=== PATIENT | female | born 1940 | race Caucasian/White ===

== ENCOUNTER 2018-01-14 11:44 | Emergency (ER) | payer MEDICARE ==
[2018-01-14] MEDS ORDERED: Adacel (T-DAP) 0.5 ML VIAL ONE (12:06)
[2018-01-14] MEDS ORDERED: Lidocaine 1% w/Epinephrine 1:100K 20 ML VIAL ONE ×2 (13:08→13:22)
[2018-01-14] MEDS ORDERED: Bacitracin Zinc 1 Packet ONE (13:46)
== END 2018-01-14 14:45 | disposition home or self-care (01) ==
LOC: ERS 11:44
DX: S01.81XA Laceration without foreign body of other part of head, initial encounter (principal); S61.511A Laceration without foreign body of right wrist, initial encounter; I10 Essential (primary) hypertension; G89.29 Other chronic pain; G47.30 Sleep apnea, unspecified; F41.9 Anxiety disorder, unspecified; F32.9 Major depressive disorder, single episode, unspecified; Z79.82 Long term (current) use of aspirin; Z79.899 Other long term (current) drug therapy; W19.XXXA Unspecified fall, initial encounter
CPT/HCPCS: 12001; 12013; 90471; 90715; J2001

== ENCOUNTER 2018-02-28 08:53 | Outpatient (CLI) | payer MEDICARE ==
[2018-02-28] MEDS ORDERED: ISOVUE-370 76%-LOCM 1 ML ONE (11:16)
== END 2018-02-28 08:54 | disposition home or self-care (01) ==
LOC: BICCT 08:53
PROVIDERS: ATTEND Internal Medicine
DX: I31.8 Other specified diseases of pericardium (principal); R91.8 Other nonspecific abnormal finding of lung field
CPT/HCPCS: 71260

== ENCOUNTER 2019-05-18 10:19 | Outpatient (CLI) | payer MEDICARE ==
[2019-05-18 12:06] LABS: Hemoglobin 13.2 g/dL (12.0-16.0); Mean Corpuscular Hemoglobin 31.1 pg (27.0-31.0); Mean Corpuscular Volume 94.3 fL (78.0-98.0); Mean Platelet Volume 6.5 fL (7.4-10.4); Platelet Count 306 thou/uL (130-400); RBC Distribution Width 12.4 % (11.5-14.5); Red Blood Cell (RBC) Count 4.24 mill/uL (4.20-5.40); White Blood Cell (WBC) Count 12.4 thou/uL (4.8-10.8)
[2019-05-18 12:30] LABS: Anion Gap 13 mmol/L (10-20); BUN (Urea Nitrogen) 13 mg/dL (9.8-20.1); Calc. Creatinine Clearance 0 mL/min (70-130); Calcium 10.4 mg/dL (7.8-10.44); Carbon Dioxide 27 mmol/L (23-31); Chloride 105 mmol/L (98-107); Estimated GFR-MDRD 65; Glucose 101 mg/dL (83-110); Sodium 140 mmol/L (136-145)
--- NOTE | 2019-05-19 22:56 | EKG ---
Test Reason : Blood Pressure : / mmHG Vent. Rate : 070 BPM Atrial Rate : 070 BPM P-R Int : 184 ms QRS Dur : 074 ms QT Int : 406 ms P-R-T Axes : 074 072 064 degrees QTc Int : 438 ms Normal sinus rhythm Low voltage QRS Borderline ECG No previous ECGs available Confirmed by Barry PANTOJA ([id number]) on 05/19/2019 10:56:42 PM Referred By: SERJIO Confirmed By:Barry PANTOJA
== END 2019-05-18 10:20 | disposition home or self-care (01) ==
LOC: LABBT 10:19
PROVIDERS: ATTEND Orthopaedic Surgery
DX: Z01.818 Encounter for other preprocedural examination (principal); G56.02 Carpal tunnel syndrome, left upper limb
CPT/HCPCS: 80048; 85027; 93005; 93010

== ENCOUNTER 2019-05-22 07:18 | Day surgery (SDC) | payer MEDICARE ==
[2019-05-18 10:41] VITALS: BMI 33.3
[2019-05-22] MEDS ORDERED: Clindamycin/D5W 600 mg/50 ml Premix Bag ONE (07:46)
[2019-05-22] MEDS ORDERED: Fentanyl 100 MCG/2 ML VIAL ONE (10:03)
[2019-05-22] MEDS ORDERED: Lidocaine 1% (PF) 30 ML VIAL ONE (10:05)
[2019-05-22] MEDS ORDERED: Propofol 1,000 MG/100 ML VIAL IV ONE (10:18)
--- NOTE | 2019-05-22 11:49 | OP ---
DATE OF PROCEDURE: 05/22/2019 PREOPERATIVE DIAGNOSIS: Left carpal tunnel syndrome. POSTOPERATIVE DIAGNOSIS: Left carpal tunnel syndrome. PROCEDURES PERFORMED: 1. Left open carpal tunnel release. 2. Placement of short-arm splint, left upper extremity. CHASSIS MECHANIC: None. BLOOD LOSS: Minimal. COMPLICATIONS: None. ANESTHESIA: The patient had TIVA with local. DISPOSITION: She went to recovery room in stable condition. INDICATIONS: A 78-year-old female, who has severe carpal tunnel syndrome, at this time wished to have this released. DESCRIPTION OF PROCEDURE: After all appropriate consent forms were explained and signed, the patient was taken back to the operating room and at this time was given IV sedation. A well-padded tourniquet was placed on the left arm and the arm was then prepped and draped in the standard surgical fashion. The incision was then drawn out and infiltrated with plain lidocaine. Limb was exsanguinated and tourniquet taken up to 250 mmHg. At this time, using Loupe magnification, a 15 blade was used to incise down through skin. Bipolar cautery was used to coagulate any brisk venous bleeding. We then placed a small hemostat to protect the underlying median nerve and transected the transverse carpal ligament using multiple 15 blades as well as scissors. Once this was done, a small finger was inserted to palpate for any remaining bands. At this time, a moist Ray-Katlin sponge was placed into the wound. Tourniquet was let down and pressure was held. Bipolar cautery used to coagulate any brisk venous bleeding. The wound was then irrigated with saline solution and we then evaluated the nerve. The nerve was found to be significantly injected, the nerve was intact, there were no masses noted, and the underlying flexor tendons were in good condition. At this time, we irrigated and dried the wound. We then placed multiple nylon stitches to close the incision. A bulky sterile hand dressing and a small volar splint were then placed. The patient was then awakened and taken to recovery in stable condition. All counts were correct at the end of the case. The patient received preoperative IV antibiotics. The nerve was evaluated and it found to be in very poor condition. It was found to be almost atretic in appearance, where we injected and the central portion of this almost appeared as if the outer covering of the nerve was absent with the nerve fibers themselves starting to stride or split up rather than being one solid nerve. Again, there were no masses noted. Job ID: [id number]
== END 2019-05-22 11:40 | disposition home or self-care (01) ==
LOC: SDC 07:18
PROVIDERS: ATTEND Orthopaedic Surgery
PROC: 01N50ZZ Release Median Nerve, Open Approach (ICD-10-PCS; principal; 2019-05-22)
DX: G56.03 Carpal tunnel syndrome, bilateral upper limbs (principal); I10 Essential (primary) hypertension; E78.5 Hyperlipidemia, unspecified; J32.9 Chronic sinusitis, unspecified; D64.9 Anemia, unspecified; F32.9 Major depressive disorder, single episode, unspecified; M06.9 Rheumatoid arthritis, unspecified; Z79.1 Long term (current) use of non-steroidal anti-inflammatories (NSAID); Z79.82 Long term (current) use of aspirin; Z79.899 Other long term (current) drug therapy; Z87.891 Personal history of nicotine dependence; Z88.0 Allergy status to penicillin; Z88.2 Allergy status to sulfonamides
CPT/HCPCS: J2001; J2704; J3010; J3490

== ENCOUNTER 2019-06-19 07:20 | Day surgery (SDC) | payer MEDICARE ==
[2019-06-18 11:23] VITALS: BMI 33.5
[2019-06-19] MEDS ORDERED: Clindamycin/D5W 600 mg/50 ml Premix Bag ONE (07:44)
[2019-06-19 08:04] LABS: #Eosinphils 0.2 thou/uL (0.0-0.7); #Lymphocytes 3.5 thou/uL (1.20-3.40); #Monocytes 0.7 thou/uL (0.11-0.59); #Neutrophils 5.9 thou/uL (1.40-6.50); %Basophils 0.4 % (0.0-1.0); %Eosinophils 1.8 % (0.0-10.0); %Lymphocytes 33.9 % (21.0-51.0); %Monocytes 6.5 % (0.0-10.0); %Neutrophils 57.4 % (42.0-75.0); Hemoglobin 12.8 g/dL (12.0-16.0); Mean Corpuscular HGB CONC 33.9 g/dL (32.0-36.0); Mean Corpuscular Hemoglobin 31.8 pg (27.0-31.0); Mean Corpuscular Volume 93.9 fL (78.0-98.0); Mean Platelet Volume 6.2 fL (7.4-10.4); Platelet Count 291 thou/uL (130-400); RBC Distribution Width 12.4 % (11.5-14.5); Red Blood Cell (RBC) Count 4.02 mill/uL (4.20-5.40); White Blood Cell (WBC) Count 10.2 thou/uL (4.8-10.8)
[2019-06-19] MEDS ORDERED: Lidocaine 1% (PF) 30 ML VIAL ONE (09:48)
[2019-06-19] MEDS ORDERED: Fentanyl 100 MCG/2 ML VIAL ONE (09:59)
--- NOTE | 2019-06-19 11:54 | OP ---
DATE OF PROCEDURE: 06/19/2019 PREOPERATIVE DIAGNOSIS: Right carpal tunnel syndrome. POSTOPERATIVE DIAGNOSIS: Right carpal tunnel syndrome. PROCEDURES PERFORMED: 1. Right open carpal tunnel release. 2. Placement of short-arm volar splint right upper extremity. TALENT SOURCING SPECIALIST: None. ESTIMATED BLOOD LOSS: Minimal. COMPLICATIONS: None. DISPOSITION: She went to Day Stay in stable condition. ANESTHESIA: She had a TIVA with local anesthetic. INDICATIONS: This 78-year-old female had a left-sided carpal tunnel release done approximately a month ago. She has done very well from that and at this time opted to have her right side release as well. DESCRIPTION OF PROCEDURE: After all appropriate consent forms were explained and signed, the patient was taken back to the operating room and at this time was given IV sedation. A well-padded tourniquet was placed on the right arm and the arm was then prepped and draped in the standard surgical fashion. The incision was then drawn out and infiltrated with plain lidocaine. Limb was exsanguinated and tourniquet taken up to 250 mmHg. At this time, using Loupe magnification, a 15 blade was used to incise down through skin. Bipolar cautery was used to coagulate any brisk venous bleeding. We then placed a small hemostat to protect the underlying median nerve and transected the transverse carpal ligament using multiple 15 blades as well as scissors. Once this was done, a small finger was inserted to palpate for any remaining bands. At this time, a moist Ray-Katlin sponge was placed into the wound. Tourniquet was let down and pressure was held. Bipolar cautery used to coagulate any brisk venous bleeding. The wound was then irrigated with saline solution and we then evaluated the nerve. The nerve was found to be significantly injected, the nerve was intact, there were no masses noted, and the underlying flexor tendons were in good condition. At this time, we irrigated and dried the wound. We then placed multiple nylon stitches to close the incision. A bulky sterile hand dressing and a small volar splint were then placed. The patient was then awakened and taken to recovery in stable condition. All counts were correct at the end of the case. The patient received preoperative IV antibiotics. Job ID: [id number]
== END 2019-06-19 11:30 | disposition home or self-care (01) ==
LOC: SDC 07:20
PROVIDERS: ATTEND Orthopaedic Surgery
PROC: 01N50ZZ Release Median Nerve, Open Approach (ICD-10-PCS; principal; 2019-06-19)
DX: G56.01 Carpal tunnel syndrome, right upper limb (principal); I10 Essential (primary) hypertension; E78.5 Hyperlipidemia, unspecified; J32.9 Chronic sinusitis, unspecified; F32.9 Major depressive disorder, single episode, unspecified; Z87.891 Personal history of nicotine dependence; Z79.82 Long term (current) use of aspirin; Z79.899 Other long term (current) drug therapy; Z88.0 Allergy status to penicillin; Z88.2 Allergy status to sulfonamides
CPT/HCPCS: 36415; 85025; J2001; J3010; J3490

== ENCOUNTER 2019-07-08 07:34 | Outpatient (CLI) | payer MEDICARE ==
--- NOTE | 2019-07-08 09:12 | MRI ---
MRI LUMBAR SPINE WITHOUT CONTRAST: HISTORY: Lumbar spondylosis. COMPARISON: 05/09/2016 FINDINGS: Conus medullaris is normal in morphology and terminates at the T12-L1 level. There is degenerative marrow heterogeneity. Prominent Schmorl's node involves the inferior L4 vertebr al body. Small Schmorl's node is seen inferiorly at L2. Incidental note of cyst formation of each kidney, multiple in number. L1-2: Mild central canal stenosis due to disc osteophyte formation. No high-grade foraminal stenosis. Mild bilateral facet osteoarthritis, left greater than right. L2-3: Central disc protrusion. Severe central canal stenosis when combined with disc osteophyte compl ex. There is mild left neural foraminal stenosis. No significant right foraminal narrowing. Moderate bilateral facet osteoarthritis. L3-4: Broad based disc osteophyte with moderate central canal stenosis. There is crowding of the bila teral traversing L4 nerve roots. Moderate bilateral facet osteoarthritis is present with moderate left and mild right neural foraminal narrowing. L4-5: Mild to moderate central canal stenosis due to disc osteophyte formation with mild to moderate bilateral neural foraminal stenosis. There is moderate bilateral facet osteoarthritis. L5-S1: Broad-based disc osteophyte is present. Moderate bilateral facet osteoarthritis, left greater than right. There is mild left foraminal narrowing. No significant right foraminal narrowing. IMPRESSION: Moderate multilevel degenerative change throughout the lumbar spine. Findings are most pronounced at L2-3, where central disc protrusion superimposed upon disc osteophyte produces severe central canal stenosis. Transcribed Date/Time: 07/08/2019 10:05 AM
== END 2019-07-08 07:35 | disposition home or self-care (01) ==
LOC: BICMRI 07:34
PROVIDERS: ATTEND Anesthesiology Pain Medicine
DX: M47.26 Other spondylosis with radiculopathy, lumbar region (principal); M51.16 Intervertebral disc disorders with radiculopathy, lumbar region; M48.061 Spinal stenosis, lumbar region without neurogenic claudication; M54.14 Radiculopathy, thoracic region; M25.78 Osteophyte, vertebrae
CPT/HCPCS: 72148

== ENCOUNTER 2019-07-09 07:56 | Outpatient (CLI) | payer MEDICARE ==
--- NOTE | 2019-07-09 10:44 | MRI ---
MRI THORACIC SPINE WITHOUT CONTRAST: Date: 07/09/19 INDICATION: Thoracic radiculopathy. FINDINGS: The thoracic vertebra maintain normal height and alignment. Vertebral body signal is normal. There is no evidence of compression or edema. Disc spaces are maintained. Mild to moderate degenerative spurr ing is seen in the lower thoracic vertebra. There is no evidence of disc bulge or disc protrusion at any of the thoracic levels. There is no cent ral canal stenosis apparent. Thoracic cord signal appears normal. IMPRESSION: There are degenerative changes of the thoracic spine with moderate osteophytes seen anteriorly and la terally in the mid and lower thoracic vertebra. No disc protrusion or central canal stenosis identifi ed. POS: [facility]
== END 2019-07-09 07:57 | disposition home or self-care (01) ==
LOC: BICMRI 07:56
PROVIDERS: ATTEND Anesthesiology Pain Medicine
DX: M51.16 Intervertebral disc disorders with radiculopathy, lumbar region (principal); M47.26 Other spondylosis with radiculopathy, lumbar region; M54.14 Radiculopathy, thoracic region; M48.061 Spinal stenosis, lumbar region without neurogenic claudication; M25.78 Osteophyte, vertebrae
CPT/HCPCS: 72146

== ENCOUNTER 2020-08-19 09:08 | Outpatient (CLI) | payer MEDICARE ==
--- NOTE | 2020-08-19 10:13 | MRI ---
MRI Lumbar Spine WO Con History: Spinal stenosis with neurogenic claudication Comparison: Lumbar spine MRI 2019 Findings: Aortic contour is nonaneurysmal. No hydronephrosis. Small renal cysts. Paraspinal musculature is symmetric and mildly atrophied. No marrow infiltrative process. Conus medullaris terminates near the superior L1 endplate. Narrowed interspinous space from L3-L5 with cortical sclerosis and subcortical cyst formation. Levels are as follows: T12/L1: Moderate circumferential disc bulge. Mild ventral CSF space effacement with the spinal canal measuring 9 mm. Mild left neural foraminal narrowing. L1/L2: Mild disc desiccation height loss. Moderate circumferential disc bulge. Moderate bilateral hyp ertrophic facet arthropathy. Moderate left and mild right neural foraminal narrowing. Mild thickening of the ligamentum flavum. Spinal canal measures 9 mm. L2/L3: Moderate disc desiccation and height loss. Very large circumferential disc bulge with superimp osed central disc protrusion is similar to slightly progressed 2 2019. The central disc protrusion narrows the spinal canal to 2-3 mm. Moderate to severe hypertrophic facet arthrosis. Severe left and moderate right neural foraminal narrowing. Abnormal increased posterior epidural fat at this level as well as ligamentum flavum hypertrophy. L3/L4: Moderate disc desiccation and height loss. Large circumferential disc osteophyte complex. Mode rate to severe left and moderate right neural foraminal narrowing. Severe hypertrophic facet arthrosis. Mild ligamentum flavum hypertrophy. The spinal canal measures 5 mm. Abutment of the left exiting and traversing nerve roots as well as right exiting nerve root. L4/L5: High-grade disc desiccation and height loss. Large circumferential disc osteophyte complex gre atest in the left lateral recess and extra foraminal zone. Moderate right and moderate to severe left neural foraminal narrowing with abutment of both traversing L5 and left exiting L4 nerve roots. Moderate to severe hypertrophic facet arthrosis with thickened ligamentum flavum. L5/S1: Relatively maintained disc hydration. Minimal height loss. Moderate facet arthrosis. No signif icant neural foraminal or spinal canal narrowing. Impression: Multilevel high-grade neural foraminal and spinal canal narrowing.
== END 2020-08-19 09:09 | disposition home or self-care (01) ==
LOC: TBSIIMAG 09:08
PROVIDERS: ATTEND Anesthesiology Pain Medicine
DX: M48.062 Spinal stenosis, lumbar region with neurogenic claudication (principal)
CPT/HCPCS: 72148

== ENCOUNTER 2021-08-06 14:59 | Emergency (ER) | payer MEDICARE ==
[2021-08-06] MEDS ORDERED: Ondansetron ODT 4 MG TAB ONE (17:09)
== END 2021-08-06 17:21 | disposition home or self-care (01) ==
LOC: ERS 14:59
DX: M06.9 Rheumatoid arthritis, unspecified (principal); I10 Essential (primary) hypertension; Z87.891 Personal history of nicotine dependence; Z79.899 Other long term (current) drug therapy
CPT/HCPCS: 99283; Q0162

== ENCOUNTER 2021-08-09 07:53 | Emergency (ER) | payer MEDICARE ==
[2021-08-09 09:22] LABS: #Eosinphils 0.1 thou/uL (0.0-0.7); #Lymphocytes 2.8 thou/uL (1.20-3.40); #Monocytes 0.8 thou/uL (0.11-0.59); #Neutrophils 9.6 thou/uL (1.40-6.50); %Basophils 0.2 % (0.0-1.0); %Eosinophils 1.1 % (0.0-10.0); %Lymphocytes 20.7 % (21.0-51.0); %Monocytes 6.2 % (0.0-10.0); %Neutrophils 71.9 % (42.0-75.0); Hemoglobin 11.9 g/dL (12.0-16.0); Mean Corpuscular HGB CONC 33.7 g/dL (32.0-36.0); Mean Corpuscular Hemoglobin 28.7 pg (27.0-31.0); Mean Corpuscular Volume 85.1 fL (78.0-98.0); Mean Platelet Volume 6.6 fL (7.4-10.4); Platelet Count 437 thou/uL (130-400); Red Blood Cell (RBC) Count 4.13 mill/uL (4.20-5.40); White Blood Cell (WBC) Count 13.3 thou/uL (4.8-10.8)
[2021-08-09] MEDS ORDERED: Ondansetron PF 4 MG/2 ML Vial ONE (09:36)
[2021-08-09 09:38] LABS: ALT (SGPT) 15 U/L (8-55); AST (SGOT) 22 U/L (5-34); Albumin 4.4 g/dL (3.4-4.8); Alkaline Phosphatase 64 U/L (40-110); Anion Gap 16 mmol/L (10-20); BUN (Urea Nitrogen) 21 mg/dL (9.8-20.1); Bilirubin, Total 0.4 mg/dL (0.2-1.2); Calc. Creatinine Clearance 0 mL/min (70-130); Calcium 9.9 mg/dL (7.8-10.44); Carbon Dioxide 26 mmol/L (23-31); Chloride 96 mmol/L (98-107); Globulin 3.1 g/dL (2.4-3.5); Glucose 101 mg/dL (83-110); Potassium 4.2 mmol/L (3.5-5.1); Protein, Total 7.5 g/dL (5.8-8.1); Sodium 134 mmol/L (136-145)
[2021-08-09 10:13] LABS: Band 1 % (5-11); Lymphocytes 23 % (21-51); MDiff Complete? YES; Monocytes 4 % (0-10); Neutrophil 72 % (42-75); Platelet Morphology Comment Appears Increased; RBC Morphology Normal
[2021-08-09 13:59] LABS: SARS-CoV-2 NAA Rapid Test Not Detected (NotDetected)
[2021-08-09 15:25] LABS: Bilirubin Negative (Negative); Blood, Urine Negative (Negative); Clarity Clear (Clear); Glucose, Urine (Dipstick) Normal (Negative); Ketone, Urine Negative (Negative); Leukocyte Negative Leu/uL (Negative); Nitrite Negative (Negative); Protein, Urine (Dipstick) Negative (Neg-Trace); Specific Gravity, Urine 1.016 (1.002-1.036); Urobilinogen Normal mg/dL (Less than 2); pH, Urine 7.5 (5.0-9.0)
== END 2021-08-09 18:15 ==
LOC: ERS 07:53
DX: E86.0 Dehydration (principal); M06.9 Rheumatoid arthritis, unspecified; I10 Essential (primary) hypertension; Z20.822 Contact with and (suspected) exposure to COVID-19; Z87.891 Personal history of nicotine dependence; Z79.82 Long term (current) use of aspirin; Z79.899 Other long term (current) drug therapy
CPT/HCPCS: 71045; 80053; 81003; 83880; 84484; 85025; 87086; 93005; 96374; 99285; U0002; 36415; J2405

== ENCOUNTER 2022-02-25 08:46 | Inpatient (IN) | payer MEDICARE ==
[2022-02-25 09:09] LABS: #Basophils 0.1 thou/uL (0.0-0.2); #Lymphocytes 1.8 thou/uL (1.20-3.40); #Monocytes 0.6 thou/uL (0.11-0.59); %Basophils 0.4 % (0.0-1.0); %Eosinophils 0.4 % (0.0-10.0); %Lymphocytes 14.7 % (21.0-51.0); %Monocytes 4.5 % (0.0-10.0); Hemoglobin 6.8 g/dL (12.0-16.0); Mean Corpuscular HGB CONC 31.5 g/dL (32.0-36.0); Mean Corpuscular Hemoglobin 29.4 pg (27.0-31.0); Mean Corpuscular Volume 93.3 fL (78.0-98.0); Mean Platelet Volume 5.4 fL (7.4-10.4); Platelet Count 362 thou/uL (130-400); RBC Distribution Width 14.2 % (11.5-14.5); White Blood Cell (WBC) Count 12.4 thou/uL (4.8-10.8)
[2022-02-25 09:31] LABS: ALT (SGPT) 10 U/L (8-55); AST (SGOT) 14 U/L (5-34); Albumin 3.3 g/dL (3.4-4.8); Alkaline Phosphatase 47 U/L (40-110); Anion Gap 15 mmol/L (10-20); BUN (Urea Nitrogen) 26 mg/dL (9.8-20.1); Bilirubin, Total 0.3 mg/dL (0.2-1.2); Calc. Creatinine Clearance 0 mL/min (70-130); Calcium 8.4 mg/dL (7.8-10.44); Carbon Dioxide 24 mmol/L (23-31); Chloride 97 mmol/L (98-107); Globulin 2.2 g/dL (2.4-3.5); Glucose 127 mg/dL (83-110); Potassium 4.1 mmol/L (3.5-5.1); Protein, Total 5.5 g/dL (5.8-8.1); Sodium 132 mmol/L (136-145)
[2022-02-25] MEDS ORDERED: Xylocaine 1% w/ Epi 1:100K 10 ML VIAL ONE (09:43)
[2022-02-25] MEDS ORDERED: Boostrix 0.5 ML (Tdap) VIAL ONE (09:50)
[2022-02-25] MEDS ORDERED: Pantoprazole 40 MG VIAL ONE (09:50)
[2022-02-25] MEDS ORDERED: Pantoprazole 80 MG, Admixture Fee 1 EACH in Sodium Chloride 0.9% 100 ML IVPB SCH (10:15)
[2022-02-25 10:18] LABS: INR-International Normal Ratio 1.2; PTT 23.9 sec (22.9-36.1); Prothrombin Time 15.2 sec (12.0-14.7)
[2022-02-25] MEDS ORDERED: Acetaminophen 325 MG TAB PO PRN (11:05)
[2022-02-25] MEDS ORDERED: Metoclopramide HCl 10 MG/2 ML VIAL ONE (11:36)
[2022-02-25 12:11] LABS: SARS-CoV-2 NAA Rapid Test Not Detected (NotDetected)
[2022-02-25] MEDS ORDERED: fentaNYL Citrate/PF 100 MCG/2 ML SYRINGE ONE (13:06)
[2022-02-25] MEDS ORDERED: Succinylcholine 200 MG/10 ml SYRINGE FS ONE (13:23)
[2022-02-25] MEDS ORDERED: Promethazine HCl 25 MG/ML VIAL IM PRN (14:30)
[2022-02-25] MEDS ORDERED: Ondansetron HCl/PF 4 MG/2 ML Vial IVP PRN (14:30)
[2022-02-25] MEDS ORDERED: Promethazine HCl 25 MG/ML VIAL IVPB PRN (14:30)
[2022-02-25] MEDS: Ondansetron ODT 4 MG TAB PO PRN ×2 (15:00→21:39)
[2022-02-25] MEDS: Lactated Ringer's 1,000 ML IV SCH ×2 (15:05→20:09)
[2022-02-25 17:10] VITALS: BMI 32.8
[2022-02-25] MEDS ORDERED: Melatonin 3 MG TAB PO PRN (19:40)
[2022-02-25 19:42] LABS: Hemoglobin 8.2 g/dL (12.0-16.0); Platelet Count 253 thou/uL (130-400)
[2022-02-25] MEDS: Pantoprazole 80 MG in Sodium Chloride 0.9% 100 ML IVPB SCH (20:05)
[2022-02-25] MEDS ORDERED: HYDROcodone/Acetaminophen 10/325 mg Tablet PO PRN (21:40)
[2022-02-25] MEDS ORDERED: Gabapentin 400 MG CAP PO SCH (23:45)
[2022-02-26] MEDS: Lactated Ringer's 1,000 ML IV SCH ×3 (02:55→20:19)
[2022-02-26 04:28] LABS: #Lymphocytes 2.4 thou/uL (1.20-3.40); #Monocytes 0.9 thou/uL (0.11-0.59); #Neutrophils 8.2 thou/uL (1.40-6.50); %Basophils 0.2 % (0.0-1.0); %Eosinophils 0.2 % (0.0-10.0); %Lymphocytes 20.6 % (21.0-51.0); %Monocytes 7.7 % (0.0-10.0); %Neutrophils 71.3 % (42.0-75.0); Hemoglobin 7.1 g/dL (12.0-16.0); Mean Corpuscular HGB CONC 32.9 g/dL (32.0-36.0); Mean Corpuscular Hemoglobin 29.4 pg (27.0-31.0); Mean Corpuscular Volume 89.2 fL (78.0-98.0); Mean Platelet Volume 5.6 fL (7.4-10.4); Platelet Count 249 thou/uL (130-400); RBC Distribution Width 15.5 % (11.5-14.5); White Blood Cell (WBC) Count 11.5 thou/uL (4.8-10.8)
[2022-02-26 04:46] LABS: ALT (SGPT) 12 U/L (8-55); AST (SGOT) 24 U/L (5-34); Alkaline Phosphatase 36 U/L (40-110); Anion Gap 11 mmol/L (10-20); BUN (Urea Nitrogen) 23 mg/dL (9.8-20.1); Bilirubin, Total 0.8 mg/dL (0.2-1.2); Calc. Creatinine Clearance 81 mL/min (70-130); Calcium 7.8 mg/dL (7.8-10.44); Carbon Dioxide 23 mmol/L (23-31); Chloride 102 mmol/L (98-107); Glucose 115 mg/dL (83-110); Potassium 3.6 mmol/L (3.5-5.1); Sodium 132 mmol/L (136-145)
[2022-02-26] MEDS: Levothyroxine Sodium 50 MCG TAB PO SCH (05:05)
[2022-02-26] MEDS: Pantoprazole 80 MG in Sodium Chloride 0.9% 100 ML IVPB SCH (05:50)
[2022-02-26] MEDS: Hydrochlorothiazide 25 MG TAB PO SCH (09:07)
[2022-02-26] MEDS: Losartan 25 MG TAB PO SCH (09:07)
[2022-02-26] MEDS: Cholecalciferol 1,000 UNITS (25 MCG) TAB PO SCH (09:07)
[2022-02-26] MEDS: Gabapentin 300 MG CAP PO SCH ×3 (09:07→20:19)
[2022-02-26] MEDS: Calcium Carbonate 600 MG + Vit D TAB PO SCH (09:07)
[2022-02-26] MEDS: Loratadine 10 MG TAB PO SCH (09:07)
[2022-02-26] MEDS: Stress 600 With Zinc 1 TAB PO SCH (09:08)
[2022-02-26 12:08] LABS: Hemoglobin 7.3 g/dL (12.0-16.0); Mean Corpuscular HGB CONC 32.4 g/dL (32.0-36.0); Mean Corpuscular Hemoglobin 29.2 pg (27.0-31.0); Mean Corpuscular Volume 90.1 fL (78.0-98.0); Mean Platelet Volume 5.7 fL (7.4-10.4); Platelet Count 257 thou/uL (130-400); RBC Distribution Width 15.7 % (11.5-14.5); Red Blood Cell (RBC) Count 2.49 mill/uL (4.20-5.40); White Blood Cell (WBC) Count 10.7 thou/uL (4.8-10.8)
[2022-02-26] MEDS: Pantoprazole 40 MG VIAL IVP SCH (20:19)
[2022-02-26] MEDS: Zolpidem Tartrate 5 MG TAB PO SCH (20:19)
[2022-02-26] MEDS ORDERED: Gabapentin 400 MG CAP PO SCH (21:00)
[2022-02-27] MEDS: Levothyroxine Sodium 50 MCG TAB PO SCH (04:53)
[2022-02-27] MEDS: HYDROcodone/Acetaminophen 7.5/325 mg Tablet PO PRN ×3 (04:53→21:02)
[2022-02-27] MEDS: Lactated Ringer's 1,000 ML IV SCH ×3 (04:54→18:02)
[2022-02-27 08:08] LABS: #Eosinphils 0.1 thou/uL (0.0-0.7); #Lymphocytes 1.7 thou/uL (1.20-3.40); #Monocytes 0.5 thou/uL (0.11-0.59); #Neutrophils 6.4 thou/uL (1.40-6.50); %Basophils 0.3 % (0.0-1.0); %Eosinophils 0.6 % (0.0-10.0); %Lymphocytes 19.1 % (21.0-51.0); %Monocytes 6.1 % (0.0-10.0); %Neutrophils 73.9 % (42.0-75.0); Hemoglobin 6.8 g/dL (12.0-16.0); Mean Corpuscular HGB CONC 32.5 g/dL (32.0-36.0); Mean Corpuscular Hemoglobin 29.5 pg (27.0-31.0); Mean Corpuscular Volume 90.6 fL (78.0-98.0); Mean Platelet Volume 5.8 fL (7.4-10.4); Platelet Count 240 thou/uL (130-400); RBC Distribution Width 15.4 % (11.5-14.5); Red Blood Cell (RBC) Count 2.29 mill/uL (4.20-5.40); White Blood Cell (WBC) Count 8.7 thou/uL (4.8-10.8)
[2022-02-27 08:14] LABS: ALT (SGPT) 12 U/L (8-55); AST (SGOT) 21 U/L (5-34); Albumin 3.2 g/dL (3.4-4.8); Alkaline Phosphatase 39 U/L (40-110); Anion Gap 10 mmol/L (10-20); BUN (Urea Nitrogen) 10 mg/dL (9.8-20.1); Bilirubin, Total 0.4 mg/dL (0.2-1.2); Calc. Creatinine Clearance 86 mL/min (70-130); Calcium 7.8 mg/dL (7.8-10.44); Carbon Dioxide 25 mmol/L (23-31); Chloride 102 mmol/L (98-107); Globulin 2.2 g/dL (2.4-3.5); Glucose 100 mg/dL (83-110); Potassium 3.2 mmol/L (3.5-5.1); Protein, Total 5.4 g/dL (5.8-8.1); Sodium 134 mmol/L (136-145)
[2022-02-27] MEDS: Stress 600 With Zinc 1 TAB PO SCH (08:53)
[2022-02-27] MEDS: Losartan 25 MG TAB PO SCH (08:53)
[2022-02-27] MEDS: Loratadine 10 MG TAB PO SCH (08:54)
[2022-02-27] MEDS: Pantoprazole 40 MG VIAL IVP SCH ×2 (08:54→21:02)
[2022-02-27] MEDS: Hydrochlorothiazide 25 MG TAB PO SCH (08:54)
[2022-02-27] MEDS: Calcium Carbonate 600 MG + Vit D TAB PO SCH (08:54)
[2022-02-27] MEDS: Cholecalciferol 1,000 UNITS (25 MCG) TAB PO SCH (08:54)
[2022-02-27] MEDS: Gabapentin 300 MG CAP PO SCH ×3 (08:54→21:00)
[2022-02-27] MEDS ORDERED: Potassium Chloride 20 MEQ TAB PO SCH (09:30)
[2022-02-27 09:53] LABS: Hemoglobin 7.8 g/dL (12.0-16.0); Mean Corpuscular HGB CONC 33.3 g/dL (32.0-36.0); Mean Corpuscular Hemoglobin 30.2 pg (27.0-31.0); Mean Corpuscular Volume 90.5 fL (78.0-98.0); Mean Platelet Volume 5.6 fL (7.4-10.4); Platelet Count 264 thou/uL (130-400); RBC Distribution Width 15.8 % (11.5-14.5); White Blood Cell (WBC) Count 10.8 thou/uL (4.8-10.8)
[2022-02-27 18:25] LABS: Hemoglobin 9.1 g/dL (12.0-16.0); Platelet Count 230 thou/uL (130-400)
[2022-02-27] MEDS: Zolpidem Tartrate 5 MG TAB PO SCH (21:02)
[2022-02-28 01:59] LABS: Hemoglobin 8.2 g/dL (12.0-16.0); Platelet Count 216 thou/uL (130-400)
[2022-02-28] MEDS: HYDROcodone/Acetaminophen 7.5/325 mg Tablet PO PRN ×4 (03:30→22:13)
[2022-02-28] MEDS: Lactated Ringer's 1,000 ML IV SCH ×2 (03:31→10:09)
[2022-02-28] MEDS: Levothyroxine Sodium 50 MCG TAB PO SCH (05:31)
[2022-02-28 05:53] LABS: Hemoglobin 7.8 g/dL (12.0-16.0); Platelet Count 194 thou/uL (130-400)
[2022-02-28 07:58] LABS: Anion Gap 11 mmol/L (10-20); BUN (Urea Nitrogen) 8 mg/dL (9.8-20.1); Calc. Creatinine Clearance 90 mL/min (70-130); Calcium 7.8 mg/dL (7.8-10.44); Carbon Dioxide 25 mmol/L (23-31); Chloride 100 mmol/L (98-107); Glucose 85 mg/dL (83-110); Potassium 3.8 mmol/L (3.5-5.1); Sodium 132 mmol/L (136-145)
[2022-02-28] MEDS ORDERED: Ferrous Sulfate 325 MG TAB PO SCH (08:00)
[2022-02-28] MEDS: Calcium Carbonate 600 MG + Vit D TAB PO SCH (08:54)
[2022-02-28] MEDS: Cholecalciferol 1,000 UNITS (25 MCG) TAB PO SCH (08:55)
[2022-02-28] MEDS: Gabapentin 300 MG CAP PO SCH ×3 (08:55→20:55)
[2022-02-28] MEDS: Hydrochlorothiazide 25 MG TAB PO SCH (08:56)
[2022-02-28] MEDS: Loratadine 10 MG TAB PO SCH (08:56)
[2022-02-28] MEDS: Pantoprazole 40 MG VIAL IVP SCH ×2 (08:56→20:57)
[2022-02-28] MEDS: Losartan 25 MG TAB PO SCH (08:56)
[2022-02-28] MEDS: Stress 600 With Zinc 1 TAB PO SCH (08:57)
[2022-02-28 14:43] LABS: Hemoglobin 8.9 g/dL (12.0-16.0)
[2022-02-28] MEDS: Zolpidem Tartrate 5 MG TAB PO SCH (20:55)
[2022-03-01] MEDS: Levothyroxine Sodium 50 MCG TAB PO SCH (05:02)
[2022-03-01] MEDS: HYDROcodone/Acetaminophen 7.5/325 mg Tablet PO PRN (05:03)
[2022-03-01] MEDS: Calcium Carbonate 600 MG + Vit D TAB PO SCH (08:25)
[2022-03-01] MEDS: Pantoprazole 40 MG VIAL IVP SCH (08:25)
[2022-03-01] MEDS: Gabapentin 300 MG CAP PO SCH (08:26)
[2022-03-01] MEDS: Cholecalciferol 1,000 UNITS (25 MCG) TAB PO SCH (08:26)
[2022-03-01] MEDS: Stress 600 With Zinc 1 TAB PO SCH (08:27)
[2022-03-01] MEDS: Losartan 25 MG TAB PO SCH (08:27)
[2022-03-01] MEDS: Hydrochlorothiazide 25 MG TAB PO SCH (08:27)
[2022-03-01] MEDS: Loratadine 10 MG TAB PO SCH (08:27)
[2022-03-01 10:19] VITALS: BP 153/67; TEMP 97.8
== END 2022-03-01 10:20 | disposition swing bed (61) | DRG 378 ==
LOC: ERS 08:46 → IMCU/EMU 10:30 → 2NO 02-27 19:45
PROVIDERS: ADMIT Family Medicine; ATTEND Family Medicine
PROC: 0W3P8ZZ Control Bleeding in Gastrointestinal Tract, Via Natural or Artificial Opening Endoscopic (ICD-10-PCS; principal; 2022-02-25)
PROC: 0HQ0XZZ Repair Scalp Skin, External Approach (ICD-10-PCS; 2022-02-25)
PROC: 30233N1 Transfusion of Nonautologous Red Blood Cells into Peripheral Vein, Percutaneous Approach (ICD-10-PCS; 2022-02-25)
DX: K26.4 Chronic or unspecified duodenal ulcer with hemorrhage (principal); S22.41XA Multiple fractures of ribs, right side, initial encounter for closed fracture; D62 Acute posthemorrhagic anemia; Z20.822 Contact with and (suspected) exposure to COVID-19; S01.81XA Laceration without foreign body of other part of head, initial encounter; W19.XXXA Unspecified fall, initial encounter; M81.0 Age-related osteoporosis without current pathological fracture; I10 Essential (primary) hypertension; F32.A Depression, unspecified; J32.9 Chronic sinusitis, unspecified; M51.36 Other intervertebral disc degeneration, lumbar region; J44.9 Chronic obstructive pulmonary disease, unspecified; F41.9 Anxiety disorder, unspecified; Z88.0 Allergy status to penicillin; Z88.2 Allergy status to sulfonamides; Z79.899 Other long term (current) drug therapy; Z79.890 Hormone replacement therapy; Z90.710 Acquired absence of both cervix and uterus; Z95.5 Presence of coronary angioplasty implant and graft; Z87.891 Personal history of nicotine dependence
CPT/HCPCS: 36415; 36430; 70450; 71045; 72125; 74176; 80048; 80053; 84484; 85014; 85018; 85025; 85049; 85610; 85730; 86850; 86900; 86901; 90471; 90715; 93005; 94760; 96361; 96365; 96374; 96375; A4215; C9113; J2765; J3490; J7120; P9016; Q0162

== ENCOUNTER 2022-12-03 22:33 | Observation (INO) | payer MEDICARE ==
[2022-12-04 00:08] LABS: #Eosinphils 0.1 thou/uL (0.0-0.7); #Lymphocytes 1.6 thou/uL (1.20-3.40); #Monocytes 0.7 thou/uL (0.11-0.59); #Neutrophils 7.5 thou/uL (1.40-6.50); %Basophils 0.4 % (0.0-1.0); %Eosinophils 0.9 % (0.0-10.0); %Lymphocytes 15.8 % (21.0-51.0); %Monocytes 6.8 % (0.0-10.0); %Neutrophils 76.1 % (42.0-75.0); Mean Corpuscular HGB CONC 33.4 g/dL (32.0-36.0); Mean Corpuscular Hemoglobin 30.5 pg (27.0-31.0); Mean Corpuscular Volume 91.3 fl (78.0-98.0); Platelet Count 243 10x3/uL (130-400); RBC Distribution Width 14.7 % (11.5-14.5); Red Blood Cell (RBC) Count 2.96 mill/uL (4.20-5.40); White Blood Cell (WBC) Count 9.8 10x3/uL (4.8-10.8)
[2022-12-04] MEDS ORDERED: HYDROcodone/Acetaminophen 10/325 mg Tablet ONE (00:11)
[2022-12-04 00:30] LABS: ALT (SGPT) 76 U/L (8-55); AST (SGOT) 194 U/L (5-34); Albumin 3.8 g/dL (3.4-4.8); Alkaline Phosphatase 77 U/L (40-110); Anion Gap 15 mmol/L (10-20); BUN (Urea Nitrogen) 13 mg/dL (9.8-20.1); Calc. Creatinine Clearance 0 mL/min (70-130); Calcium 9.2 mg/dL (7.8-10.44); Carbon Dioxide 26 mmol/L (23-31); Chloride 101 mmol/L (98-107); Estimated GFR 67; Glucose 127 mg/dL (83-110); Lipase 75 U/L (8-78); Potassium 3.6 mmol/L (3.5-5.1); Protein, Total 6.8 g/dL (5.8-8.1); Sodium 138 mmol/L (136-145)
[2022-12-04] MEDS ORDERED: HYDROcodone/Acetaminophen 7.5/325 mg Tablet PO PRN (02:29)
[2022-12-04 03:06] VITALS: BMI 33.1
[2022-12-04 04:07] LABS: Troponin I Less than 0.010 ng/mL (< 0.028)
[2022-12-04 05:26] LABS: #Eosinphils 0.1 thou/uL (0.0-0.7); #Monocytes 0.6 thou/uL (0.11-0.59); #Neutrophils 4.7 thou/uL (1.40-6.50); %Basophils 0.5 % (0.0-1.0); %Eosinophils 1.1 % (0.0-10.0); %Lymphocytes 26.8 % (21.0-51.0); %Monocytes 7.7 % (0.0-10.0); %Neutrophils 63.9 % (42.0-75.0); Hemoglobin 9.6 g/dL (12.0-16.0); Mean Corpuscular HGB CONC 33.1 g/dL (32.0-36.0); Mean Corpuscular Hemoglobin 30.5 pg (27.0-31.0); Mean Corpuscular Volume 92.1 fl (78.0-98.0); Mean Platelet Volume 6.7 fL (7.4-10.4); Platelet Count 249 10x3/uL (130-400); RBC Distribution Width 14.7 % (11.5-14.5); Red Blood Cell (RBC) Count 3.14 mill/uL (4.20-5.40); White Blood Cell (WBC) Count 7.4 10x3/uL (4.8-10.8)
[2022-12-04 05:56] LABS: ALT (SGPT) 181 U/L (8-55); AST (SGOT) 407 U/L (5-34); Albumin 4.1 g/dL (3.4-4.8); Alkaline Phosphatase 96 U/L (40-110); Anion Gap 13 mmol/L (10-20); BUN (Urea Nitrogen) 12 mg/dL (9.8-20.1); Bilirubin, Total 1.2 mg/dL (0.2-1.2); Calc. Creatinine Clearance 66 mL/min (70-130); Calcium 9.2 mg/dL (7.8-10.44); Carbon Dioxide 27 mmol/L (23-31); Chloride 102 mmol/L (98-107); Estimated GFR 66; Globulin 3.1 g/dL (2.4-3.5); Glucose 109 mg/dL (83-110); Potassium 3.9 mmol/L (3.5-5.1); Protein, Total 7.2 g/dL (5.8-8.1); Sodium 138 mmol/L (136-145)
[2022-12-04] MEDS ORDERED: Levothyroxine Sodium 50 MCG TAB PO SCH (06:00)
[2022-12-04 06:49] LABS: Troponin I Less than 0.010 ng/mL (< 0.028)
[2022-12-04] MEDS ORDERED: Ferrous Sulfate 325 MG TAB PO SCH (08:00)
[2022-12-04] MEDS ORDERED: Potassium Chloride 10 MEQ TAB PO SCH (08:00)
[2022-12-04] MEDS ORDERED: Aspirin 81 mg Enteric Coated Tablet PO SCH (09:00)
[2022-12-04] MEDS ORDERED: Fish Oil 1,000 MG CAP PO SCH (09:00)
[2022-12-04] MEDS ORDERED: Hydrochlorothiazide 25 MG TAB PO SCH (09:00)
[2022-12-04] MEDS ORDERED: Calcium Carbonate 600 MG + Vit D TAB PO SCH (09:00)
[2022-12-04] MEDS ORDERED: Sertraline 100 MG TAB PO SCH (09:00)
[2022-12-04] MEDS ORDERED: Gabapentin 400 MG CAP PO SCH (09:00)
[2022-12-04] MEDS ORDERED: Amlodipine 10 MG TAB PO SCH (09:00)
[2022-12-04] MEDS ORDERED: Torsemide 20 MG TAB PO SCH (09:00)
[2022-12-04] MEDS ORDERED: Magnesium Oxide 250 MG TAB PO SCH (09:00)
[2022-12-04] MEDS ORDERED: Losartan 25 MG TAB PO SCH (09:00)
[2022-12-04] MEDS ORDERED: Loratadine 10 MG TAB PO SCH (09:00)
[2022-12-04] MEDS: hydrALAZINE 25 MG TAB PO SCH ×2 (09:12→14:29)
[2022-12-04 09:22] VITALS: TEMP 98.8
[2022-12-04 11:16] LABS: HBCM Index 0.09 S/CO (0-0.79); Hep A IgM AB Non-Reactive (NonReactive); Hep A IgM S/CO 0.18 S/CO (0-0.79); Hep B Surf Ag Non-Reactive S/CO (NonReactive); Hep C IgG Ab Non-Reactive (NonReactive); Hep C Index 0.15 S/CO (0-0.79); Hepatitis B Core IgM Abs Non-Reactive (NonReactive)
[2022-12-04 13:49] VITALS: BP 157/70
[2022-12-04] MEDS ORDERED: Zolpidem Tartrate 5 MG TAB PO SCH (21:00)
== END 2022-12-04 16:00 | disposition home or self-care (01) ==
LOC: ERS 22:33 → 2SW 12-04 01:12
PROVIDERS: ADMIT Emergency Medicine; ATTEND Emergency Medicine
DX: R07.89 Other chest pain (principal); R74.01 Elevation of levels of liver transaminase levels; I11.0 Hypertensive heart disease with heart failure; I50.30 Unspecified diastolic (congestive) heart failure; I73.9 Peripheral vascular disease, unspecified; G47.00 Insomnia, unspecified; D50.9 Iron deficiency anemia, unspecified; M19.90 Unspecified osteoarthritis, unspecified site; E03.9 Hypothyroidism, unspecified; J44.9 Chronic obstructive pulmonary disease, unspecified; R32 Unspecified urinary incontinence; K80.20 Calculus of gallbladder without cholecystitis without obstruction; Z87.891 Personal history of nicotine dependence; Z79.82 Long term (current) use of aspirin; Z79.890 Hormone replacement therapy; Z79.899 Other long term (current) drug therapy; Z88.0 Allergy status to penicillin; Z88.2 Allergy status to sulfonamides; Z99.81 Dependence on supplemental oxygen; Z20.822 Contact with and (suspected) exposure to COVID-19
CPT/HCPCS: 71045; 76705; 78452; 80053; 80074; 83690; 83880; 84484 ×3; 85025; 93005; 93971; A9500; U0003; U0005; 36415; 84443; 96372; G0378; J1650

== ENCOUNTER 2023-10-19 12:54 | Emergency (ER) | payer MEDICARE ==
[2023-10-19 13:29] LABS: #Monocytes 1.7 thou/uL (0.11-0.59); #Neutrophils 13.5 thou/uL (1.40-6.50); %Basophils 0.2 % (0.0-1.0); %Eosinophils 0.1 % (0.0-10.0); %Lymphocytes 13.5 % (21.0-51.0); %Monocytes 9.8 % (0.0-10.0); %Neutrophils 75.4 % (42.0-75.0); Hematocrit 25.5 % (36.0-47.0); Hemoglobin 8.3 g/dL (12.0-16.0); Mean Corpuscular HGB CONC 32.5 g/dL (32.0-36.0); Mean Corpuscular Hemoglobin 31.2 pg (27.0-31.0); Mean Corpuscular Volume 95.9 fl (78.0-98.0); Mean Platelet Volume 8.6 fL (7.4-10.4); Platelet Count 280 10x3/uL (130-400); RBC Distribution Width 14.7 % (11.5-14.5); Red Blood Cell (RBC) Count 2.66 mill/uL (4.20-5.40); White Blood Cell (WBC) Count 17.8 10x3/uL (4.8-10.8)
[2023-10-19 13:54] LABS: ALT (SGPT) 16 U/L (8-55); AST (SGOT) 28 U/L (5-34); Albumin 3.8 g/dL (3.4-4.8); Alkaline Phosphatase 50 U/L (40-110); Anion Gap 18 mmol/L (10-20); BUN (Urea Nitrogen) 27 mg/dL (9.8-20.1); Bilirubin, Total 0.6 mg/dL (0.2-1.2); Calc. Creatinine Clearance 0 mL/min (70-130); Calcium 8.6 mg/dL (7.8-10.44); Carbon Dioxide 18 mmol/L (23-31); Chloride 103 mmol/L (98-107); Estimated GFR 42; Globulin 3.3 g/dL (2.4-3.5); Glucose 109 mg/dL (83-110); Magnesium 2.2 mg/dL (1.6-2.6); Potassium 4.6 mmol/L (3.5-5.1); Protein, Total 7.1 g/dL (5.8-8.1); Sodium 134 mmol/L (136-145)
[2023-10-19 14:02] LABS: Troponin I Less than 0.010 ng/mL (< 0.028)
[2023-10-19 16:16] LABS: SARS-CoV-2 NAA Rapid Test Not Detected (NotDetected)
[2023-10-19] MEDS ORDERED: HYDROcodone/Acetaminophen 10/325 mg Tablet ONE (17:14)
[2023-10-19] MEDS ORDERED: Ipratropium/Albuterol 3 ML NEB ONE (17:51)
== END 2023-10-19 19:52 ==
LOC: ERS 12:54
DX: J44.0 Chronic obstructive pulmonary disease with (acute) lower respiratory infection (principal); R53.1 Weakness; R09.02 Hypoxemia; I10 Essential (primary) hypertension; Z87.891 Personal history of nicotine dependence
CPT/HCPCS: 0240U; 71045; 80053; 83735; 83880; 84484; 85025; 93005; 99285; J7620

== ENCOUNTER 2023-10-23 00:56 | Inpatient (IN) | payer MEDICARE ==
[2023-10-23 01:52] LABS: #Monocytes 1.8 thou/uL (0.11-0.59); #Neutrophils 13.7 thou/uL (1.40-6.50); %Basophils 0.1 % (0.0-1.0); %Eosinophils 0.2 % (0.0-10.0); %Lymphocytes 10.9 % (21.0-51.0); %Neutrophils 78.1 % (42.0-75.0); Actual Bicarbonate (HCO3v) 18.5 mEq/L (22-28); Analyzer IN Cardio ER; Base Excess -4.5 mEq/L (-2.0 to +3.0); Chloride (VBG) 90 mmol/L (98-106); Hematocrit 22.6 % (36.0-47.0); Hematocrit-VBG 26 % (36.0-47.0); Hemoglobin (Hb) 8.9 g/dL (11.7-16.1); Mean Corpuscular HGB CONC 35.4 g/dL (32.0-36.0); Mean Corpuscular Hemoglobin 32.1 pg (27.0-31.0); Mean Corpuscular Volume 90.8 fl (78.0-98.0); Mean Platelet Volume 8.3 fL (7.4-10.4); Platelet Count 381 10x3/uL (130-400); Potassium (VBG) 4.38 mmol/L (3.70-5.30); RBC Distribution Width 13.6 % (11.5-14.5); Red Blood Cell (RBC) Count 2.49 mill/uL (4.20-5.40); Sodium 120 mmol/L (133-146); White Blood Cell (WBC) Count 17.6 10x3/uL (4.8-10.8); pH (venous) 7.455 (7.32-7.43)
[2023-10-23 02:02] LABS: INR-International Normal Ratio 1.3; PTT 43.6 sec (22.9-36.1); Prothrombin Time 15.9 sec (12.0-14.7)
[2023-10-23 02:15] LABS: ALT (SGPT) 19 U/L (8-55); AST (SGOT) 38 U/L (5-34); Albumin 3.5 g/dL (3.4-4.8); Alkaline Phosphatase 45 U/L (40-110); Anion Gap 19 mmol/L (10-20); BUN (Urea Nitrogen) 33 mg/dL (9.8-20.1); Bilirubin, Total 0.4 mg/dL (0.2-1.2); Calc. Creatinine Clearance 0 mL/min (70-130); Calcium 8.3 mg/dL (7.8-10.44); Carbon Dioxide 17 mmol/L (23-31); Chloride 90 mmol/L (98-107); Estimated GFR 37; Globulin 3.4 g/dL (2.4-3.5); Glucose 87 mg/dL (83-110); Lipase 4 U/L (8-78); Magnesium 2.4 mg/dL (1.6-2.6); Potassium 4.8 mmol/L (3.5-5.1); Protein, Total 6.9 g/dL (5.8-8.1); Sodium 121 mmol/L (136-145)
[2023-10-23 02:19] LABS: Troponin I 0.045 ng/mL (< 0.028)
[2023-10-23] MEDS ORDERED: Magnesium 2 GM/50 ML BAG (IN WATER) ONE (02:22)
[2023-10-23] MEDS ORDERED: methylPREDNISolone Sod Succ/PF 125 MG/2 ML VIAL ONE (02:22)
[2023-10-23] MEDS ORDERED: LevoFLOXacin 750 mg/D5W 150 ml Premix Bag ONE (02:23)
[2023-10-23] MEDS ORDERED: Vancomycin 1 GM/200 ML (FROZEN) BAG ONE (02:23)
[2023-10-23 02:42] LABS: SARS-CoV-2 NAA Rapid Test Not Detected (NotDetected)
[2023-10-23] MEDS ORDERED: Acetaminophen 325 MG TAB PO PRN (04:05)
[2023-10-23] MEDS ORDERED: Ondansetron ODT 4 MG TAB PO PRN (04:05)
[2023-10-23] MEDS ORDERED: Ipratropium/Albuterol 3 ML NEB NEB PRN (04:21)
[2023-10-23] MEDS ORDERED: dilTIAZem 125 MG in Sodium Chloride 0.9% 100 ML IVPB SCH (04:30)
[2023-10-23] MEDS ORDERED: Furosemide 40 MG (4 mL) VIAL ONE (04:46)
[2023-10-23] MEDS ORDERED: Furosemide 40 MG (4 mL) VIAL SLOW IVP SCH (05:00)
[2023-10-23 05:03] LABS: Actual Bicarbonate (HCO3a) 18.6 mEq/L (22-28); Analyzer IN Cardio ER; Base Excess (BEa) -5.7 mEq/L (-2.0 to +3.0); CO2 Tension 31.9 mmHg (35.0-45.0); Carboxyhemoglobin (COHb) 0.6 gm% (0.0-3.0); Hematocrit-ABG 26 % (36.0-47.0); Potassium - ABG Lab 4.24 mmol/L (3.70-5.30); pH, Arterial 7.383 (7.35-7.45)
[2023-10-23 05:07] LABS: Troponin I 0.024 ng/mL (< 0.028)
[2023-10-23 05:23] LABS: Phosphorus 4.2 mg/dL (2.3-4.7)
[2023-10-23 05:23] LABS: ALV-art Gradient 185.825 mmHg (0-20); Puncture Site RR
[2023-10-23] MEDS ORDERED: Ipratropium/Albuterol 3 ML NEB NEB SCH (06:30)
[2023-10-23] MEDS ORDERED: Lactated Ringer's 1,000 ML IV SCH ×2 (07:15→10:00)
[2023-10-23] MEDS ORDERED: Docusate 100 MG CAP PO PRN (08:31)
[2023-10-23] MEDS ORDERED: Naproxen 500 MG TAB PO PRN (08:31)
[2023-10-23] MEDS ORDERED: Bisacodyl 10 MG SUPP PR PRN (08:31)
[2023-10-23] MEDS ORDERED: Loperamide HCl 2 MG CAP PO PRN (08:31)
[2023-10-23] MEDS ORDERED: Amiodarone 150 MG, Admixture Fee 1 EACH in Dextrose 5% in Water 100 ML IVPB SCH (08:45)
[2023-10-23] MEDS ORDERED: Magnesium Oxide 400 MG TAB PO PRN (08:56)
[2023-10-23] MEDS ORDERED: Milk Of Magnesia 30 ML UDCUP PO PRN (08:58)
[2023-10-23] MEDS ORDERED: Gabapentin 400 MG CAP PO SCH (09:00)
[2023-10-23] MEDS ORDERED: Enoxaparin 40 MG (0.4 mL) SYRINGE SC SCH (09:00)
[2023-10-23] MEDS ORDERED: Hydrochlorothiazide 25 MG TAB PO SCH (09:00)
[2023-10-23] MEDS ORDERED: Enoxaparin 80 MG (0.8 mL) SYRINGE SC SCH (09:00)
[2023-10-23] MEDS: Amiodarone 450 MG, Admixture Fee 1 EACH in Dextrose 5% in Water 250 ML IVPB SCH ×2 (09:52→16:29)
[2023-10-23] MEDS: Fluticasone Propionate Nasal Spray 16 gm Bottle NASAL SCH (10:11)
[2023-10-23] MEDS: Polyethylene Glycol 3350 17 GM Packet PO SCH (10:12)
[2023-10-23] MEDS: Cetirizine HCl 10 MG TAB PO SCH (10:13)
[2023-10-23] MEDS: guaiFENesin ER 600 MG TAB PO SCH ×2 (10:13→21:15)
[2023-10-23] MEDS: Enoxaparin 80 MG (0.8 mL) SYRINGE SC SCH ×2 (10:13→21:17)
[2023-10-23] MEDS: Ascorbic Acid 500 mg Chewable Tablet PO SCH (10:13)
[2023-10-23] MEDS: Gabapentin 300 MG CAP PO SCH ×2 (10:14→21:15)
[2023-10-23] MEDS: Aspirin 81 mg Enteric Coated Tablet PO SCH (10:14)
[2023-10-23] MEDS ORDERED: methylPREDNISolone Sod Succ/PF 125 MG/2 ML VIAL IVP SCH (10:15)
[2023-10-23] MEDS: Cholecalciferol 1,000 UNITS (25 MCG) TAB PO SCH (10:15)
[2023-10-23] MEDS: Losartan 25 MG TAB PO SCH (10:16)
[2023-10-23] MEDS: Ferrous Sulfate 325 MG TAB PO SCH (10:16)
[2023-10-23] MEDS: Fish Oil 1,000 MG CAP PO SCH (10:16)
[2023-10-23] MEDS: Amlodipine 10 MG TAB PO SCH (10:20)
[2023-10-23] MEDS: hydrALAZINE 25 MG TAB PO SCH ×2 (10:21→21:17)
[2023-10-23 10:41] LABS: Anion Gap 18 mmol/L (10-20); BUN (Urea Nitrogen) 32 mg/dL (9.8-20.1); Calc. Creatinine Clearance 40 mL/min (70-130); Calcium 8.2 mg/dL (7.8-10.44); Carbon Dioxide 17 mmol/L (23-31); Chloride 89 mmol/L (98-107); Estimated GFR 39; Glucose 142 mg/dL (83-110); Potassium 4.3 mmol/L (3.5-5.1); Sodium 120 mmol/L (136-145)
[2023-10-23] MEDS: Ipratropium/Albuterol 3 ML NEB NEB SCH ×3 (10:54→19:26)
[2023-10-23] MEDS: Budesonide 0.25 MG/2 ML NEB INH SCH ×2 (10:54→19:26)
[2023-10-23 11:11] LABS: Creatinine, Urine 34.12 mg/dL (47-110)
[2023-10-23] MEDS: cefTRIAXone\\ROCEPHIN 1 GM in Sodium Chloride 0.9% 100 ML IVPB SCH (11:27)
[2023-10-23] MEDS ORDERED: Azithromycin 500 MG in Sodium Chloride 0.9% 250 ML 250 ML IVPB SCH (12:00)
[2023-10-23] MEDS ORDERED: Iopamidol 370 76% 100 ML VIAL ONE (13:18)
[2023-10-23] MEDS: Sodium Bicarbonate Tab 325 MG TAB PO SCH ×2 (15:17→21:15)
[2023-10-23 16:46] LABS: Anion Gap 17 mmol/L (10-20); BUN (Urea Nitrogen) 32 mg/dL (9.8-20.1); Calc. Creatinine Clearance 39 mL/min (70-130); Carbon Dioxide 19 mmol/L (23-31); Chloride 89 mmol/L (98-107); Estimated GFR 38; Glucose 174 mg/dL (83-110); Sodium 121 mmol/L (136-145)
[2023-10-23] MEDS: HYDROcodone/Acetaminophen 10/325 mg Tablet PO PRN (17:51)
[2023-10-23] MEDS: Sodium Chloride 0.9% 1,000 ML IV SCH (21:15)
[2023-10-24] MEDS: HYDROcodone/Acetaminophen 10/325 mg Tablet PO PRN ×2 (00:14→17:44)
[2023-10-24 01:16] LABS: Anion Gap 14 mmol/L (10-20); BUN (Urea Nitrogen) 35 mg/dL (9.8-20.1); Calc. Creatinine Clearance 38 mL/min (70-130); Calcium 8.1 mg/dL (7.8-10.44); Carbon Dioxide 20 mmol/L (23-31); Chloride 89 mmol/L (98-107); Estimated GFR 37; Glucose 122 mg/dL (83-110)
[2023-10-24 01:28] LABS: Sodium 119 mmol/L (136-145)
[2023-10-24 05:02] LABS: #Monocytes 2.1 thou/uL (0.11-0.59); #Neutrophils 17.8 thou/uL (1.40-6.50); %Basophils 0.1 % (0.0-1.0); %Lymphocytes 5.4 % (21.0-51.0); %Monocytes 9.6 % (0.0-10.0); %Neutrophils 83.7 % (42.0-75.0); Hematocrit 21.3 % (36.0-47.0); Hemoglobin 7.1 g/dL (12.0-16.0); Mean Corpuscular HGB CONC 33.3 g/dL (32.0-36.0); Mean Corpuscular Hemoglobin 30.7 pg (27.0-31.0); Mean Corpuscular Volume 92.2 fl (78.0-98.0); Mean Platelet Volume 8.1 fL (7.4-10.4); Platelet Count 319 10x3/uL (130-400); RBC Distribution Width 13.7 % (11.5-14.5); Red Blood Cell (RBC) Count 2.31 mill/uL (4.20-5.40); White Blood Cell (WBC) Count 21.3 10x3/uL (4.8-10.8)
[2023-10-24 05:29] LABS: ALT (SGPT) 17 U/L (8-55); AST (SGOT) 23 U/L (5-34); Albumin 3.3 g/dL (3.4-4.8); Alkaline Phosphatase 42 U/L (40-110); Anion Gap 17 mmol/L (10-20); BUN (Urea Nitrogen) 36 mg/dL (9.8-20.1); Bilirubin, Total 0.4 mg/dL (0.2-1.2); Calc. Creatinine Clearance 38 mL/min (70-130); Carbon Dioxide 19 mmol/L (23-31); Chloride 91 mmol/L (98-107); Estimated GFR 35; Globulin 2.9 g/dL (2.4-3.5); Glucose 120 mg/dL (83-110); Potassium 4.1 mmol/L (3.5-5.1); Protein, Total 6.2 g/dL (5.8-8.1); Sodium 123 mmol/L (136-145)
[2023-10-24] MEDS: Levothyroxine Sodium 50 MCG TAB PO SCH (06:03)
[2023-10-24] MEDS: Ipratropium/Albuterol 3 ML NEB NEB SCH ×4 (06:39→18:59)
[2023-10-24] MEDS: Budesonide 0.25 MG/2 ML NEB INH SCH (06:42)
[2023-10-24 07:16] LABS: Hematocrit 21.6 % (36.0-47.0); Hemoglobin 7.5 g/dL (12.0-16.0); Mean Corpuscular HGB CONC 34.7 g/dL (32.0-36.0); Mean Corpuscular Hemoglobin 31.1 pg (27.0-31.0); Mean Corpuscular Volume 89.6 fl (78.0-98.0); Mean Platelet Volume 8.6 fL (7.4-10.4); Platelet Count 338 10x3/uL (130-400); RBC Distribution Width 13.6 % (11.5-14.5); Red Blood Cell (RBC) Count 2.41 mill/uL (4.20-5.40); White Blood Cell (WBC) Count 21.7 10x3/uL (4.8-10.8)
[2023-10-24] MEDS ORDERED: Azithromycin 500 MG in Sodium Chloride 0.9% 250 ML 250 ML IVPB SCH (08:00)
[2023-10-24] MEDS: Sodium Chloride 0.9% 1,000 ML IV SCH ×2 (08:06→14:13)
[2023-10-24] MEDS: Amiodarone 450 MG, Admixture Fee 1 EACH in Dextrose 5% in Water 250 ML IVPB SCH (08:13)
[2023-10-24] MEDS ORDERED: methylPREDNISolone Sod Succ/PF 125 MG/2 ML VIAL IVP SCH (09:00)
[2023-10-24 09:18] LABS: Magnesium 2.6 mg/dL (1.6-2.6); Phosphorus 4.4 mg/dL (2.3-4.7)
[2023-10-24] MEDS: Gabapentin 300 MG CAP PO SCH ×2 (09:23→20:58)
[2023-10-24] MEDS: Sodium Bicarbonate Tab 325 MG TAB PO SCH ×3 (09:23→20:58)
[2023-10-24] MEDS: Ascorbic Acid 500 mg Chewable Tablet PO SCH (09:25)
[2023-10-24] MEDS: Amlodipine 10 MG TAB PO SCH (09:26)
[2023-10-24] MEDS: hydrALAZINE 25 MG TAB PO SCH ×2 (09:27→20:57)
[2023-10-24] MEDS: Aspirin 81 mg Enteric Coated Tablet PO SCH (09:27)
[2023-10-24] MEDS: Fish Oil 1,000 MG CAP PO SCH (09:28)
[2023-10-24] MEDS: Cholecalciferol 1,000 UNITS (25 MCG) TAB PO SCH (09:28)
[2023-10-24] MEDS: Cetirizine HCl 10 MG TAB PO SCH (09:28)
[2023-10-24] MEDS: Polyethylene Glycol 3350 17 GM Packet PO SCH (09:29)
[2023-10-24] MEDS: Enoxaparin 80 MG (0.8 mL) SYRINGE SC SCH ×2 (09:29→20:58)
[2023-10-24] MEDS: Fluticasone Propionate Nasal Spray 16 gm Bottle NASAL SCH (09:30)
[2023-10-24] MEDS: guaiFENesin ER 600 MG TAB PO SCH ×2 (09:31→20:57)
[2023-10-24] MEDS: Losartan 25 MG TAB PO SCH (09:36)
[2023-10-24] MEDS: cefTRIAXone\\ROCEPHIN 1 GM in Sodium Chloride 0.9% 100 ML IVPB SCH (11:39)
[2023-10-24] MEDS ORDERED: Epoetin (ESRD) 10,000 UNITS/ML VIAL SC SCH (12:00)
[2023-10-24 12:19] LABS: Base Excess -5.5 mEq/L (-2.0 to +3.0); Calcium, Ionized (venous) 1.07 mmol/L (1.16-1.32); Chloride (VBG) 91 mmol/L (98-106); Hematocrit-VBG 26 % (36.0-47.0); Potassium (VBG) 3.69 mmol/L (3.70-5.30); Sodium 123 mmol/L (133-146); pH (venous) 7.378 (7.32-7.43)
[2023-10-24] MEDS: EPOETIN ALFA-EPBX (ESRD) 10,000 UNITS/ML VIAL SC SCH (13:20)
[2023-10-24] MEDS: methylPREDNISolone Sod Succ 40 MG VIAL IVP SCH (17:28)
[2023-10-24 17:41] LABS: Anion Gap 16 mmol/L (10-20); BUN (Urea Nitrogen) 34 mg/dL (9.8-20.1); Calc. Creatinine Clearance 40 mL/min (70-130); Calcium 8.1 mg/dL (7.8-10.44); Carbon Dioxide 19 mmol/L (23-31); Chloride 93 mmol/L (98-107); Estimated GFR 38; Glucose 148 mg/dL (83-110); Potassium 3.7 mmol/L (3.5-5.1); Sodium 124 mmol/L (136-145)
[2023-10-24] MEDS: Budesonide 0.5 MG/2 ML NEB INH SCH (18:59)
[2023-10-25 00:09] LABS: Hematocrit 20.2 % (36.0-47.0); Hemoglobin 6.9 g/dL (12.0-16.0)
[2023-10-25 00:23] LABS: INR-International Normal Ratio 1.5; PTT 50.8 sec (22.9-36.1); Prothrombin Time 17.7 sec (12.0-14.7)
[2023-10-25] MEDS ORDERED: Sodium Chloride 0.9% 500 ML IV SCH (00:45)
[2023-10-25] MEDS: methylPREDNISolone Sod Succ 40 MG VIAL IVP SCH ×5 (00:57→23:25)
[2023-10-25] MEDS: Amiodarone 450 MG, Admixture Fee 1 EACH in Dextrose 5% in Water 250 ML IVPB SCH (01:02)
[2023-10-25] MEDS: HYDROcodone/Acetaminophen 10/325 mg Tablet PO PRN (03:54)
[2023-10-25 04:45] LABS: #Monocytes 1.2 thou/uL (0.11-0.59); #Neutrophils 20.8 thou/uL (1.40-6.50); %Basophils 0.1 % (0.0-1.0); %Lymphocytes 3.1 % (21.0-51.0); %Monocytes 5.1 % (0.0-10.0); %Neutrophils 90.6 % (42.0-75.0); Hematocrit 24.1 % (36.0-47.0); Hemoglobin 8.2 g/dL (12.0-16.0); Mean Corpuscular Hemoglobin 30.8 pg (27.0-31.0); Mean Corpuscular Volume 90.6 fl (78.0-98.0); Mean Platelet Volume 8.5 fL (7.4-10.4); Platelet Count 363 10x3/uL (130-400); RBC Distribution Width 13.7 % (11.5-14.5); Red Blood Cell (RBC) Count 2.66 mill/uL (4.20-5.40); White Blood Cell (WBC) Count 22.9 10x3/uL (4.8-10.8)
[2023-10-25 04:59] LABS: Lactic Acid 0.5 mmol/L (0.5-2.2)
[2023-10-25 05:05] LABS: ALT (SGPT) 17 U/L (8-55); AST (SGOT) 19 U/L (5-34); Albumin 3.4 g/dL (3.4-4.8); Alkaline Phosphatase 45 U/L (40-110); Anion Gap 14 mmol/L (10-20); BUN (Urea Nitrogen) 35 mg/dL (9.8-20.1); Bilirubin, Total 0.4 mg/dL (0.2-1.2); Calc. Creatinine Clearance 41 mL/min (70-130); Calcium 7.9 mg/dL (7.8-10.44); Carbon Dioxide 19 mmol/L (23-31); Chloride 96 mmol/L (98-107); Estimated GFR 39; Globulin 2.8 g/dL (2.4-3.5); Glucose 135 mg/dL (83-110); Potassium 3.9 mmol/L (3.5-5.1); Protein, Total 6.2 g/dL (5.8-8.1); Sodium 125 mmol/L (136-145)
[2023-10-25 05:06] LABS: Iron 15 ug/dL (50-170); Iron Binding Capacity, Total 166 mcg/dL (265-497)
[2023-10-25] MEDS: Levothyroxine Sodium 50 MCG TAB PO SCH (06:07)
[2023-10-25] MEDS: Ipratropium/Albuterol 3 ML NEB NEB SCH ×4 (06:46→18:23)
[2023-10-25] MEDS: Budesonide 0.5 MG/2 ML NEB INH SCH ×2 (06:47→18:23)
[2023-10-25] MEDS ORDERED: Loperamide HCl 2 MG CAP PO PRN (08:15)
[2023-10-25] MEDS: Cholecalciferol 1,000 UNITS (25 MCG) TAB PO SCH (08:42)
[2023-10-25] MEDS: Aspirin 81 mg Enteric Coated Tablet PO SCH (08:42)
[2023-10-25] MEDS: Cetirizine HCl 10 MG TAB PO SCH (08:42)
[2023-10-25] MEDS: Ferrous Sulfate 325 MG TAB PO SCH (08:43)
[2023-10-25] MEDS: Sodium Bicarbonate Tab 325 MG TAB PO SCH ×3 (08:43→20:42)
[2023-10-25] MEDS: Ascorbic Acid 500 mg Chewable Tablet PO SCH (08:43)
[2023-10-25] MEDS: Fish Oil 1,000 MG CAP PO SCH (08:43)
[2023-10-25] MEDS: Amlodipine 10 MG TAB PO SCH (08:43)
[2023-10-25] MEDS: guaiFENesin ER 600 MG TAB PO SCH ×2 (08:43→20:43)
[2023-10-25] MEDS: Gabapentin 300 MG CAP PO SCH ×2 (08:43→20:42)
[2023-10-25] MEDS: Azithromycin 500 MG in Sodium Chloride 0.9% 250 ML 250 ML IVPB SCH ×2 (08:45→09:15)
[2023-10-25] MEDS: Polyethylene Glycol 3350 17 GM Packet PO SCH (08:49)
[2023-10-25] MEDS: Fluticasone Propionate Nasal Spray 16 gm Bottle NASAL SCH (08:56)
[2023-10-25] MEDS: Sodium Chloride 0.9% 1,000 ML IV SCH ×2 (10:46→23:26)
[2023-10-25] MEDS: cefTRIAXone\\ROCEPHIN 1 GM in Sodium Chloride 0.9% 100 ML IVPB SCH (10:46)
[2023-10-25] MEDS ORDERED: Dronedarone HCl 400 MG TAB PO SCH (11:15)
[2023-10-25 13:04] LABS: O2 Tension (PaO2), arterial 59.5 mmHg (> 60.0)
[2023-10-25] MEDS: Dronedarone HCl 400 MG TAB PO SCH (17:27)
[2023-10-25] MEDS: Enoxaparin 80 MG (0.8 mL) SYRINGE SC SCH (20:43)
[2023-10-26] MEDS: Levothyroxine Sodium 50 MCG TAB PO SCH (05:27)
[2023-10-26] MEDS: methylPREDNISolone Sod Succ 40 MG VIAL IVP SCH ×4 (05:28→23:47)
[2023-10-26 05:45] LABS: #Monocytes 1.6 thou/uL (0.11-0.59); %Basophils 0.1 % (0.0-1.0); %Lymphocytes 2.9 % (21.0-51.0); %Monocytes 6.5 % (0.0-10.0); %Neutrophils 89.2 % (42.0-75.0); Hematocrit 23.7 % (36.0-47.0); Hemoglobin 8.2 g/dL (12.0-16.0); Mean Corpuscular HGB CONC 34.6 g/dL (32.0-36.0); Mean Corpuscular Hemoglobin 31.2 pg (27.0-31.0); Mean Corpuscular Volume 90.1 fl (78.0-98.0); Mean Platelet Volume 8.9 fL (7.4-10.4); Platelet Count 349 10x3/uL (130-400); RBC Distribution Width 14.7 % (11.5-14.5); Red Blood Cell (RBC) Count 2.63 mill/uL (4.20-5.40); White Blood Cell (WBC) Count 24.6 10x3/uL (4.8-10.8)
[2023-10-26 06:17] LABS: ALT (SGPT) 19 U/L (8-55); AST (SGOT) 36 U/L (5-34); Albumin 3.3 g/dL (3.4-4.8); Alkaline Phosphatase 45 U/L (40-110); Anion Gap 14 mmol/L (10-20); BUN (Urea Nitrogen) 37 mg/dL (9.8-20.1); Bilirubin, Total 0.4 mg/dL (0.2-1.2); Calc. Creatinine Clearance 41 mL/min (70-130); Calcium 7.9 mg/dL (7.8-10.44); Carbon Dioxide 18 mmol/L (23-31); Chloride 101 mmol/L (98-107); Estimated GFR 39; Globulin 3.1 g/dL (2.4-3.5); Glucose 126 mg/dL (83-110); Potassium 4.1 mmol/L (3.5-5.1); Protein, Total 6.4 g/dL (5.8-8.1); Sodium 129 mmol/L (136-145)
[2023-10-26] MEDS: Budesonide 0.5 MG/2 ML NEB INH SCH ×2 (07:48→18:14)
[2023-10-26] MEDS: Ipratropium/Albuterol 3 ML NEB NEB SCH ×4 (07:48→18:14)
[2023-10-26] MEDS: Dronedarone HCl 400 MG TAB PO SCH ×2 (08:51→16:26)
[2023-10-26] MEDS: Cholecalciferol 1,000 UNITS (25 MCG) TAB PO SCH (08:52)
[2023-10-26] MEDS: Sodium Bicarbonate Tab 325 MG TAB PO SCH ×3 (08:53→21:36)
[2023-10-26] MEDS: Aspirin 81 mg Enteric Coated Tablet PO SCH (08:53)
[2023-10-26] MEDS: Ascorbic Acid 500 mg Chewable Tablet PO SCH (08:53)
[2023-10-26] MEDS: guaiFENesin ER 600 MG TAB PO SCH ×2 (08:53→21:36)
[2023-10-26] MEDS: Cetirizine HCl 10 MG TAB PO SCH (08:54)
[2023-10-26] MEDS: Amlodipine 10 MG TAB PO SCH (08:54)
[2023-10-26] MEDS: Gabapentin 300 MG CAP PO SCH ×2 (08:55→21:36)
[2023-10-26] MEDS: Enoxaparin 80 MG (0.8 mL) SYRINGE SC SCH ×2 (08:55→21:37)
[2023-10-26] MEDS: Fish Oil 1,000 MG CAP PO SCH (08:55)
[2023-10-26] MEDS: Polyethylene Glycol 3350 17 GM Packet PO SCH (08:56)
[2023-10-26] MEDS: Fluticasone Propionate Nasal Spray 16 gm Bottle NASAL SCH (08:56)
[2023-10-26] MEDS: HYDROcodone/Acetaminophen 10/325 mg Tablet PO PRN ×3 (08:59→23:46)
[2023-10-26] MEDS ORDERED: Furosemide 40 MG (4 mL) VIAL SLOW IVP SCH (10:00)
[2023-10-26] MEDS ORDERED: hydrALAZINE 20 MG/ML VIAL SLOW IVP PRN (10:10)
[2023-10-26] MEDS: cefTRIAXone\\ROCEPHIN 1 GM in Sodium Chloride 0.9% 100 ML IVPB SCH (10:50)
[2023-10-26 13:36] LABS: Bilirubin Negative (Negative); Blood, Urine Negative (Negative); Clarity Clear (Clear); Glucose, Urine (Dipstick) Normal (Negative); Ketone, Urine Negative (Negative); Leukocyte Negative Leu/uL (Negative); Nitrite Negative (Negative); Protein, Urine (Dipstick) 20 mg/dL (Neg-Trace); RBC/HPF 0-3 HPF (0-3); Specific Gravity, Urine 1.014 (1.002-1.036); Squamous Epithelial 0-3 HPF (0-3); Urobilinogen Normal mg/dL (Less than 2); WBC/HPF None Seen HPF (0-3); pH, Urine 5.5 (5.0-9.0)
[2023-10-26 13:37] LABS: Bacteria/HPF 1+ HPF (None Seen)
[2023-10-26] MEDS ORDERED: Melatonin 3 MG TAB PO SCH (21:15)
[2023-10-27] MEDS: Levothyroxine Sodium 50 MCG TAB PO SCH (06:31)
[2023-10-27] MEDS: methylPREDNISolone Sod Succ 40 MG VIAL IVP SCH (06:31)
[2023-10-27 07:02] LABS: #Monocytes 1.4 thou/uL (0.11-0.59); #Neutrophils 17.2 thou/uL (1.40-6.50); %Basophils 0.1 % (0.0-1.0); %Lymphocytes 3.8 % (21.0-51.0); %Monocytes 6.9 % (0.0-10.0); %Neutrophils 87.1 % (42.0-75.0); Hematocrit 23.5 % (36.0-47.0); Hemoglobin 7.9 g/dL (12.0-16.0); Mean Corpuscular HGB CONC 33.6 g/dL (32.0-36.0); Mean Corpuscular Hemoglobin 30.9 pg (27.0-31.0); Mean Corpuscular Volume 91.8 fl (78.0-98.0); Mean Platelet Volume 8.8 fL (7.4-10.4); Platelet Count 322 10x3/uL (130-400); RBC Distribution Width 14.9 % (11.5-14.5); Red Blood Cell (RBC) Count 2.56 mill/uL (4.20-5.40); White Blood Cell (WBC) Count 19.8 10x3/uL (4.8-10.8)
[2023-10-27 07:22] LABS: ALT (SGPT) 17 U/L (8-55); AST (SGOT) 15 U/L (5-34); Albumin 3.2 g/dL (3.4-4.8); Alkaline Phosphatase 47 U/L (40-110); BUN (Urea Nitrogen) 39 mg/dL (9.8-20.1); Bilirubin, Total 0.5 mg/dL (0.2-1.2); Calc. Creatinine Clearance 45 mL/min (70-130); Carbon Dioxide 20 mmol/L (23-31); Chloride 105 mmol/L (98-107); Estimated GFR 43; Globulin 2.7 g/dL (2.4-3.5); Glucose 148 mg/dL (83-110); Potassium 3.6 mmol/L (3.5-5.1); Protein, Total 5.9 g/dL (5.8-8.1); Sodium 134 mmol/L (136-145)
[2023-10-27 07:25] LABS: Anion Gap 12 mmol/L (10-20)
[2023-10-27] MEDS: Budesonide 0.5 MG/2 ML NEB INH SCH ×2 (07:34→17:57)
[2023-10-27] MEDS: Ipratropium/Albuterol 3 ML NEB NEB SCH ×4 (07:34→17:56)
[2023-10-27] MEDS: Dronedarone HCl 400 MG TAB PO SCH ×2 (09:01→16:18)
[2023-10-27] MEDS: Ferrous Sulfate 325 MG TAB PO SCH (09:02)
[2023-10-27] MEDS: Amlodipine 10 MG TAB PO SCH (09:02)
[2023-10-27] MEDS: Cholecalciferol 1,000 UNITS (25 MCG) TAB PO SCH (09:03)
[2023-10-27] MEDS: Gabapentin 300 MG CAP PO SCH ×2 (09:03→20:23)
[2023-10-27] MEDS: Aspirin 81 mg Enteric Coated Tablet PO SCH (09:03)
[2023-10-27] MEDS: Fluticasone Propionate Nasal Spray 16 gm Bottle NASAL SCH (09:04)
[2023-10-27] MEDS: Ascorbic Acid 500 mg Chewable Tablet PO SCH (09:04)
[2023-10-27] MEDS: Enoxaparin 80 MG (0.8 mL) SYRINGE SC SCH ×2 (09:05→20:24)
[2023-10-27] MEDS: Fish Oil 1,000 MG CAP PO SCH (09:07)
[2023-10-27] MEDS: Polyethylene Glycol 3350 17 GM Packet PO SCH (09:08)
[2023-10-27] MEDS: Sodium Bicarbonate Tab 325 MG TAB PO SCH ×3 (09:08→20:25)
[2023-10-27] MEDS: guaiFENesin ER 600 MG TAB PO SCH ×2 (09:43→20:25)
[2023-10-27] MEDS: Cetirizine HCl 10 MG TAB PO SCH (09:44)
[2023-10-27] MEDS ORDERED: Losartan 25 MG TAB PO SCH (09:45)
[2023-10-27] MEDS: HYDROcodone/Acetaminophen 10/325 mg Tablet PO PRN ×2 (09:55→16:16)
[2023-10-27] MEDS ORDERED: Cefdinir 300 MG CAP PO SCH (11:00)
[2023-10-27] MEDS: Melatonin 3 MG TAB PO SCH (20:25)
[2023-10-28] MEDS: HYDROcodone/Acetaminophen 10/325 mg Tablet PO PRN ×4 (00:09→21:09)
[2023-10-28 04:51] LABS: #Monocytes 1.8 thou/uL (0.11-0.59); #Neutrophils 17.9 thou/uL (1.40-6.50); %Basophils 0.1 % (0.0-1.0); %Eosinophils 0.1 % (0.0-10.0); %Monocytes 8.4 % (0.0-10.0); %Neutrophils 81.8 % (42.0-75.0); Hematocrit 22.6 % (36.0-47.0); Hemoglobin 7.3 g/dL (12.0-16.0); Mean Corpuscular HGB CONC 32.3 g/dL (32.0-36.0); Mean Corpuscular Hemoglobin 30.4 pg (27.0-31.0); Mean Corpuscular Volume 94.2 fl (78.0-98.0); Mean Platelet Volume 8.4 fL (7.4-10.4); Platelet Count 250 10x3/uL (130-400); RBC Distribution Width 15.1 % (11.5-14.5); White Blood Cell (WBC) Count 21.9 10x3/uL (4.8-10.8)
[2023-10-28 05:11] LABS: ALT (SGPT) 18 U/L (8-55); AST (SGOT) 14 U/L (5-34); Albumin 3.2 g/dL (3.4-4.8); Alkaline Phosphatase 45 U/L (40-110); Anion Gap 11 mmol/L (10-20); BUN (Urea Nitrogen) 46 mg/dL (9.8-20.1); Bilirubin, Total 0.5 mg/dL (0.2-1.2); Calc. Creatinine Clearance 35 mL/min (70-130); Carbon Dioxide 21 mmol/L (23-31); Chloride 107 mmol/L (98-107); Estimated GFR 32; Globulin 2.3 g/dL (2.4-3.5); Glucose 118 mg/dL (83-110); Potassium 3.3 mmol/L (3.5-5.1); Protein, Total 5.5 g/dL (5.8-8.1); Sodium 136 mmol/L (136-145)
[2023-10-28] MEDS: Levothyroxine Sodium 50 MCG TAB PO SCH (05:54)
[2023-10-28] MEDS ORDERED: methylPREDNISolone Sod Succ 40 MG VIAL IVP SCH (06:00)
[2023-10-28] MEDS: Ipratropium/Albuterol 3 ML NEB NEB SCH ×4 (06:58→18:46)
[2023-10-28] MEDS: Budesonide 0.5 MG/2 ML NEB INH SCH ×2 (06:58→18:47)
[2023-10-28] MEDS ORDERED: Potassium Chloride 20 MEQ TAB PO SCH (07:15)
[2023-10-28] MEDS: Dronedarone HCl 400 MG TAB PO SCH ×2 (07:57→17:17)
[2023-10-28] MEDS: Gabapentin 300 MG CAP PO SCH ×2 (08:02→20:59)
[2023-10-28] MEDS: Aspirin 81 mg Enteric Coated Tablet PO SCH (08:04)
[2023-10-28] MEDS: Losartan 25 MG TAB PO SCH (08:04)
[2023-10-28] MEDS: Cholecalciferol 1,000 UNITS (25 MCG) TAB PO SCH (08:05)
[2023-10-28] MEDS: Ascorbic Acid 500 mg Chewable Tablet PO SCH (08:05)
[2023-10-28] MEDS: Sodium Bicarbonate Tab 325 MG TAB PO SCH ×3 (08:05→20:59)
[2023-10-28] MEDS: Amlodipine 10 MG TAB PO SCH (08:10)
[2023-10-28] MEDS: Polyethylene Glycol 3350 17 GM Packet PO SCH (08:11)
[2023-10-28] MEDS: Fish Oil 1,000 MG CAP PO SCH (08:11)
[2023-10-28] MEDS: Fluticasone Propionate Nasal Spray 16 gm Bottle NASAL SCH (08:11)
[2023-10-28] MEDS: Cetirizine HCl 10 MG TAB PO SCH (08:13)
[2023-10-28] MEDS: guaiFENesin ER 600 MG TAB PO SCH (11:08)
[2023-10-28] MEDS: Sodium Chloride 0.9% 1,000 ML IV SCH (11:15)
[2023-10-28] MEDS: Cefdinir 300 MG CAP PO SCH (11:16)
[2023-10-28] MEDS ORDERED: Losartan 25 MG TAB PO SCH (11:45)
[2023-10-28] MEDS: Melatonin 3 MG TAB PO SCH (20:58)
[2023-10-28] MEDS: Enoxaparin 80 MG (0.8 mL) SYRINGE SC SCH (20:58)
[2023-10-28] MEDS: Lansoprazole 15 MG/5 ML (BATCHED)UDCUP PO SCH (20:59)
[2023-10-28] MEDS: GUAIFENESIN SF SOLN 200 MG/10 ML UDCUP PO PRN (21:00)
[2023-10-29] MEDS ORDERED: methylPREDNISolone Sod Succ 40 MG VIAL IVP SCH (06:00)
[2023-10-29] MEDS: Levothyroxine Sodium 50 MCG TAB PO SCH (06:11)
[2023-10-29 07:01] LABS: #Eosinphils 0.3 thou/uL (0.0-0.7); #Monocytes 1.6 thou/uL (0.11-0.59); %Basophils 0.2 % (0.0-1.0); %Eosinophils 1.1 % (0.0-10.0); %Neutrophils 81.6 % (42.0-75.0); Hemoglobin 7.4 g/dL (12.0-16.0); Mean Corpuscular HGB CONC 30.8 g/dL (32.0-36.0); Mean Corpuscular Hemoglobin 29.4 pg (27.0-31.0); Mean Corpuscular Volume 95.2 fl (78.0-98.0); Mean Platelet Volume 9.2 fL (7.4-10.4); Platelet Count 234 10x3/uL (130-400); RBC Distribution Width 15.4 % (11.5-14.5); Red Blood Cell (RBC) Count 2.52 mill/uL (4.20-5.40); White Blood Cell (WBC) Count 23.2 10x3/uL (4.8-10.8)
[2023-10-29 07:26] LABS: ALT (SGPT) 19 U/L (8-55); AST (SGOT) 14 U/L (5-34); Albumin 3.2 g/dL (3.4-4.8); Alkaline Phosphatase 49 U/L (40-110); Anion Gap 13 mmol/L (10-20); BUN (Urea Nitrogen) 47 mg/dL (9.8-20.1); Bilirubin, Total 0.5 mg/dL (0.2-1.2); Calc. Creatinine Clearance 39 mL/min (70-130); Carbon Dioxide 24 mmol/L (23-31); Chloride 106 mmol/L (98-107); Estimated GFR 35; Globulin 2.5 g/dL (2.4-3.5); Glucose 111 mg/dL (83-110); Potassium 3.7 mmol/L (3.5-5.1); Protein, Total 5.7 g/dL (5.8-8.1); Sodium 139 mmol/L (136-145)
[2023-10-29] MEDS: HYDROcodone/Acetaminophen 10/325 mg Tablet PO PRN ×3 (07:47→20:11)
[2023-10-29] MEDS: Dronedarone HCl 400 MG TAB PO SCH ×2 (07:47→16:48)
[2023-10-29] MEDS: Ipratropium/Albuterol 3 ML NEB NEB SCH ×4 (07:48→18:43)
[2023-10-29] MEDS: Budesonide 0.5 MG/2 ML NEB INH SCH ×2 (07:50→18:44)
[2023-10-29] MEDS: Amlodipine 10 MG TAB PO SCH (08:46)
[2023-10-29] MEDS: Sodium Bicarbonate Tab 325 MG TAB PO SCH ×3 (08:47→20:11)
[2023-10-29] MEDS: Ferrous Sulfate 325 MG TAB PO SCH (08:47)
[2023-10-29] MEDS: Aspirin 81 mg Enteric Coated Tablet PO SCH (08:47)
[2023-10-29] MEDS: Cetirizine HCl 10 MG TAB PO SCH (08:47)
[2023-10-29] MEDS: Gabapentin 300 MG CAP PO SCH ×2 (08:47→20:11)
[2023-10-29] MEDS: Losartan 25 MG TAB PO SCH (08:48)
[2023-10-29] MEDS: Fluticasone Propionate Nasal Spray 16 gm Bottle NASAL SCH (08:48)
[2023-10-29] MEDS: Fish Oil 1,000 MG CAP PO SCH (08:48)
[2023-10-29] MEDS: Cholecalciferol 1,000 UNITS (25 MCG) TAB PO SCH (08:48)
[2023-10-29] MEDS: Ascorbic Acid 500 mg Chewable Tablet PO SCH (08:48)
[2023-10-29] MEDS ORDERED: hydrALAZINE 25 MG TAB PO SCH (09:00)
[2023-10-29] MEDS: Lansoprazole 15 MG/5 ML (BATCHED)UDCUP PO SCH ×2 (09:03→20:12)
[2023-10-29] MEDS: Aspirin Chewable 81 MG TAB PO SCH (09:03)
[2023-10-29] MEDS: Polyethylene Glycol 3350 17 GM Packet PO SCH (10:39)
[2023-10-29] MEDS: Cefdinir 300 MG CAP PO SCH (11:43)
[2023-10-29] MEDS: Sodium Chloride 0.9% 1,000 ML IV SCH ×2 (11:46→16:41)
[2023-10-29] MEDS ORDERED: Ipratropium/Albuterol 3 ML NEB NEB PRN (11:52)
[2023-10-29] MEDS: Melatonin 3 MG TAB PO SCH (20:11)
[2023-10-29] MEDS: Enoxaparin 80 MG (0.8 mL) SYRINGE SC SCH (20:11)
[2023-10-29] MEDS: GUAIFENESIN SF SOLN 200 MG/10 ML UDCUP PO PRN (20:15)
[2023-10-30 04:26] LABS: #Eosinphils 0.3 thou/uL (0.0-0.7); #Monocytes 1.5 thou/uL (0.11-0.59); #Neutrophils 16.9 thou/uL (1.40-6.50); %Basophils 0.1 % (0.0-1.0); %Eosinophils 1.2 % (0.0-10.0); %Lymphocytes 8.9 % (21.0-51.0); %Monocytes 7.1 % (0.0-10.0); %Neutrophils 80.7 % (42.0-75.0); Hematocrit 22.5 % (36.0-47.0); Hemoglobin 7.1 g/dL (12.0-16.0); Mean Corpuscular HGB CONC 31.6 g/dL (32.0-36.0); Mean Corpuscular Hemoglobin 30.1 pg (27.0-31.0); Mean Corpuscular Volume 95.3 fl (78.0-98.0); Mean Platelet Volume 8.9 fL (7.4-10.4); Platelet Count 231 10x3/uL (130-400); RBC Distribution Width 15.4 % (11.5-14.5); Red Blood Cell (RBC) Count 2.36 mill/uL (4.20-5.40)
[2023-10-30 05:31] LABS: ALT (SGPT) 18 U/L (8-55); AST (SGOT) 11 U/L (5-34); Alkaline Phosphatase 45 U/L (40-110); Anion Gap 14 mmol/L (10-20); BUN (Urea Nitrogen) 42 mg/dL (9.8-20.1); Bilirubin, Total 0.5 mg/dL (0.2-1.2); Calc. Creatinine Clearance 47 mL/min (70-130); Calcium 7.9 mg/dL (7.8-10.44); Carbon Dioxide 23 mmol/L (23-31); Chloride 108 mmol/L (98-107); Estimated GFR 44; Globulin 2.4 g/dL (2.4-3.5); Glucose 110 mg/dL (83-110); Potassium 4.3 mmol/L (3.5-5.1); Protein, Total 5.4 g/dL (5.8-8.1); Sodium 141 mmol/L (136-145)
[2023-10-30] MEDS: Budesonide 0.5 MG/2 ML NEB INH SCH ×2 (07:11→18:33)
[2023-10-30] MEDS: Ipratropium/Albuterol 3 ML NEB NEB SCH ×4 (07:11→18:31)
[2023-10-30] MEDS ORDERED: HYDROcodone/Acetaminophen 10/325 mg Tablet PO SCH (08:45)
[2023-10-30] MEDS ORDERED: Enoxaparin 80 MG (0.8 mL) SYRINGE SC SCH (09:00)
[2023-10-30] MEDS: Levothyroxine Sodium 50 MCG TAB PO SCH (09:05)
[2023-10-30] MEDS: Ascorbic Acid 500 mg Chewable Tablet PO SCH (09:06)
[2023-10-30] MEDS: Dronedarone HCl 400 MG TAB PO SCH ×2 (09:06→18:10)
[2023-10-30] MEDS: Amlodipine 10 MG TAB PO SCH (09:06)
[2023-10-30] MEDS: Sodium Bicarbonate Tab 325 MG TAB PO SCH ×2 (09:06→14:27)
[2023-10-30] MEDS: Aspirin Chewable 81 MG TAB PO SCH (09:06)
[2023-10-30] MEDS: Apixaban 5 MG TAB PO SCH ×2 (09:06→20:03)
[2023-10-30] MEDS: predniSONE 20 MG TAB PO SCH (10:18)
[2023-10-30] MEDS: Fish Oil 1,000 MG CAP PO SCH (10:19)
[2023-10-30] MEDS: Cetirizine HCl 10 MG TAB PO SCH (10:19)
[2023-10-30] MEDS: Gabapentin 300 MG CAP PO SCH ×2 (10:19→20:02)
[2023-10-30] MEDS: Lansoprazole 15 MG/5 ML (BATCHED)UDCUP PO SCH ×2 (10:19→20:03)
[2023-10-30] MEDS: Losartan 25 MG TAB PO SCH (10:19)
[2023-10-30] MEDS: Fluticasone Propionate Nasal Spray 16 gm Bottle NASAL SCH (10:19)
[2023-10-30] MEDS: Cholecalciferol 1,000 UNITS (25 MCG) TAB PO SCH (10:19)
[2023-10-30] MEDS: Polyethylene Glycol 3350 17 GM Packet PO SCH (10:20)
[2023-10-30] MEDS: Cefdinir 300 MG CAP PO SCH (12:26)
[2023-10-30 12:35] VITALS: BMI 32.5
[2023-10-30] MEDS: HYDROcodone/Acetaminophen 10/325 mg Tablet PO SCH ×2 (14:26→20:02)
[2023-10-30] MEDS: Melatonin 3 MG TAB PO SCH (20:03)
[2023-10-30 21:54] LABS: Hematocrit 27.1 % (36.0-47.0); Hemoglobin 8.7 g/dL (12.0-16.0); Mean Corpuscular HGB CONC 32.1 g/dL (32.0-36.0); Mean Corpuscular Hemoglobin 30.7 pg (27.0-31.0); Mean Corpuscular Volume 95.8 fl (78.0-98.0); Mean Platelet Volume 8.9 fL (7.4-10.4); Platelet Count 239 10x3/uL (130-400); Red Blood Cell (RBC) Count 2.83 mill/uL (4.20-5.40); White Blood Cell (WBC) Count 17.1 10x3/uL (4.8-10.8)
[2023-10-31] MEDS: HYDROcodone/Acetaminophen 10/325 mg Tablet PO SCH ×4 (01:54→20:03)
[2023-10-31 04:24] LABS: #Eosinphils 0.2 thou/uL (0.0-0.7); #Monocytes 1.2 thou/uL (0.11-0.59); #Neutrophils 14.2 thou/uL (1.40-6.50); %Basophils 0.1 % (0.0-1.0); %Eosinophils 0.9 % (0.0-10.0); %Lymphocytes 8.3 % (21.0-51.0); %Monocytes 6.7 % (0.0-10.0); %Neutrophils 81.6 % (42.0-75.0); Hematocrit 26.9 % (36.0-47.0); Hemoglobin 8.5 g/dL (12.0-16.0); Mean Corpuscular HGB CONC 31.6 g/dL (32.0-36.0); Mean Corpuscular Hemoglobin 29.9 pg (27.0-31.0); Mean Corpuscular Volume 94.7 fl (78.0-98.0); Mean Platelet Volume 8.7 fL (7.4-10.4); Platelet Count 225 10x3/uL (130-400); RBC Distribution Width 15.2 % (11.5-14.5); Red Blood Cell (RBC) Count 2.84 mill/uL (4.20-5.40); White Blood Cell (WBC) Count 17.4 10x3/uL (4.8-10.8)
[2023-10-31 04:47] LABS: ALT (SGPT) 16 U/L (8-55); AST (SGOT) 10 U/L (5-34); Albumin 3.1 g/dL (3.4-4.8); Alkaline Phosphatase 49 U/L (40-110); Anion Gap 10 mmol/L (10-20); BUN (Urea Nitrogen) 34 mg/dL (9.8-20.1); Bilirubin, Total 0.5 mg/dL (0.2-1.2); Calc. Creatinine Clearance 64 mL/min (70-130); Calcium 7.9 mg/dL (7.8-10.44); Carbon Dioxide 25 mmol/L (23-31); Chloride 110 mmol/L (98-107); Estimated GFR 65; Globulin 2.4 g/dL (2.4-3.5); Glucose 130 mg/dL (83-110); Potassium 4.3 mmol/L (3.5-5.1); Protein, Total 5.5 g/dL (5.8-8.1); Sodium 141 mmol/L (136-145)
[2023-10-31] MEDS: Levothyroxine Sodium 50 MCG TAB PO SCH (05:56)
[2023-10-31] MEDS: Sodium Chloride 0.9% 1,000 ML IV SCH ×2 (05:56→23:26)
[2023-10-31] MEDS: Ipratropium/Albuterol 3 ML NEB NEB SCH ×4 (06:57→17:18)
[2023-10-31] MEDS: Budesonide 0.5 MG/2 ML NEB INH SCH ×2 (06:59→19:22)
[2023-10-31] MEDS: Dronedarone HCl 400 MG TAB PO SCH ×2 (08:32→18:10)
[2023-10-31] MEDS: Fish Oil 1,000 MG CAP PO SCH (08:32)
[2023-10-31] MEDS: predniSONE 20 MG TAB PO SCH (08:32)
[2023-10-31] MEDS: Losartan 25 MG TAB PO SCH (08:32)
[2023-10-31] MEDS: Amlodipine 10 MG TAB PO SCH (08:32)
[2023-10-31] MEDS: Polyethylene Glycol 3350 17 GM Packet PO SCH (08:32)
[2023-10-31] MEDS: Cholecalciferol 1,000 UNITS (25 MCG) TAB PO SCH (08:32)
[2023-10-31] MEDS: Apixaban 5 MG TAB PO SCH ×2 (08:33→20:04)
[2023-10-31] MEDS: Ascorbic Acid 500 mg Chewable Tablet PO SCH (08:33)
[2023-10-31] MEDS: Fluticasone Propionate Nasal Spray 16 gm Bottle NASAL SCH (08:33)
[2023-10-31] MEDS: Gabapentin 300 MG CAP PO SCH ×2 (08:33→20:08)
[2023-10-31] MEDS: Ferrous Sulfate 325 MG TAB PO SCH (08:33)
[2023-10-31] MEDS: Lansoprazole 15 MG/5 ML (BATCHED)UDCUP PO SCH ×2 (08:53→20:12)
[2023-10-31] MEDS: Cetirizine HCl 10 MG TAB PO SCH (08:53)
[2023-10-31] MEDS: Aspirin Chewable 81 MG TAB PO SCH (08:53)
[2023-10-31] MEDS ORDERED: Sertraline 25 MG TAB PO SCH (09:30)
[2023-10-31] MEDS: Cefdinir 300 MG CAP PO SCH (11:35)
[2023-10-31 13:42] VITALS: BP 165/54
[2023-10-31] MEDS ORDERED: EPOETIN ALFA-EPBX (ESRD) 2,000 UNITS/ML VIAL SC SCH (14:00)
[2023-10-31] MEDS ORDERED: Epoetin (ESRD) 20,000 UNITS/ML MDV SC SCH (14:00)
[2023-10-31] MEDS: EPOETIN ALFA-EPBX (ESRD) 10,000 UNITS/ML VIAL SC SCH (14:22)
[2023-10-31] MEDS: Melatonin 3 MG TAB PO SCH (20:10)
[2023-11-01] MEDS: HYDROcodone/Acetaminophen 10/325 mg Tablet PO SCH ×4 (02:10→20:38)
[2023-11-01 04:12] LABS: #Eosinphils 0.2 thou/uL (0.0-0.7); #Monocytes 1.3 thou/uL (0.11-0.59); #Neutrophils 15.2 thou/uL (1.40-6.50); %Basophils 0.1 % (0.0-1.0); %Eosinophils 0.9 % (0.0-10.0); %Lymphocytes 8.7 % (21.0-51.0); %Monocytes 7.1 % (0.0-10.0); %Neutrophils 81.2 % (42.0-75.0); Hematocrit 25.7 % (36.0-47.0); Hemoglobin 8.2 g/dL (12.0-16.0); Mean Corpuscular HGB CONC 31.9 g/dL (32.0-36.0); Mean Corpuscular Hemoglobin 30.9 pg (27.0-31.0); Mean Platelet Volume 8.8 fL (7.4-10.4); Platelet Count 242 10x3/uL (130-400); RBC Distribution Width 15.5 % (11.5-14.5); Red Blood Cell (RBC) Count 2.65 mill/uL (4.20-5.40); White Blood Cell (WBC) Count 18.7 10x3/uL (4.8-10.8)
[2023-11-01 04:38] LABS: ALT (SGPT) 16 U/L (8-55); AST (SGOT) 12 U/L (5-34); Alkaline Phosphatase 51 U/L (40-110); Anion Gap 12 mmol/L (10-20); BUN (Urea Nitrogen) 27 mg/dL (9.8-20.1); Bilirubin, Total 0.5 mg/dL (0.2-1.2); Calc. Creatinine Clearance 68 mL/min (70-130); Carbon Dioxide 26 mmol/L (23-31); Chloride 111 mmol/L (98-107); Estimated GFR 67; Globulin 2.4 g/dL (2.4-3.5); Glucose 94 mg/dL (83-110); Potassium 4.5 mmol/L (3.5-5.1); Protein, Total 5.4 g/dL (5.8-8.1); Sodium 144 mmol/L (136-145)
[2023-11-01] MEDS: Levothyroxine Sodium 50 MCG TAB PO SCH (07:02)
[2023-11-01] MEDS: Ipratropium/Albuterol 3 ML NEB NEB SCH ×4 (07:05→19:10)
[2023-11-01] MEDS: Budesonide 0.5 MG/2 ML NEB INH SCH ×2 (07:07→19:11)
[2023-11-01] MEDS: Cholecalciferol 1,000 UNITS (25 MCG) TAB PO SCH (09:06)
[2023-11-01] MEDS: Aspirin Chewable 81 MG TAB PO SCH (09:06)
[2023-11-01] MEDS: Ascorbic Acid 500 mg Chewable Tablet PO SCH (09:06)
[2023-11-01] MEDS: Losartan 25 MG TAB PO SCH (09:06)
[2023-11-01] MEDS: Dronedarone HCl 400 MG TAB PO SCH ×2 (09:06→15:59)
[2023-11-01] MEDS: Amlodipine 10 MG TAB PO SCH (09:06)
[2023-11-01] MEDS: Fish Oil 1,000 MG CAP PO SCH (09:07)
[2023-11-01] MEDS: Fluticasone Propionate Nasal Spray 16 gm Bottle NASAL SCH (09:07)
[2023-11-01] MEDS: Apixaban 5 MG TAB PO SCH ×2 (09:07→20:40)
[2023-11-01] MEDS: predniSONE 20 MG TAB PO SCH (09:07)
[2023-11-01] MEDS: Polyethylene Glycol 3350 17 GM Packet PO SCH (09:07)
[2023-11-01] MEDS: Sertraline 25 MG TAB PO SCH (09:07)
[2023-11-01] MEDS: Lansoprazole 15 MG/5 ML (BATCHED)UDCUP PO SCH ×2 (09:07→20:44)
[2023-11-01] MEDS: Gabapentin 300 MG CAP PO SCH ×2 (09:08→20:40)
[2023-11-01] MEDS: Cetirizine HCl 10 MG TAB PO SCH (16:00)
[2023-11-01] MEDS: Melatonin 3 MG TAB PO SCH (20:41)
[2023-11-02] MEDS: HYDROcodone/Acetaminophen 10/325 mg Tablet PO SCH ×4 (01:19→20:20)
[2023-11-02 03:30] LABS: #Eosinphils 0.1 thou/uL (0.0-0.7); #Neutrophils 13.2 thou/uL (1.40-6.50); %Basophils 0.1 % (0.0-1.0); %Eosinophils 0.4 % (0.0-10.0); %Lymphocytes 10.2 % (21.0-51.0); %Monocytes 6.3 % (0.0-10.0); %Neutrophils 81.1 % (42.0-75.0); Hematocrit 25.6 % (36.0-47.0); Hemoglobin 8.1 g/dL (12.0-16.0); Mean Corpuscular HGB CONC 31.6 g/dL (32.0-36.0); Mean Corpuscular Hemoglobin 30.9 pg (27.0-31.0); Mean Corpuscular Volume 97.7 fl (78.0-98.0); Mean Platelet Volume 8.6 fL (7.4-10.4); Platelet Count 223 10x3/uL (130-400); RBC Distribution Width 15.1 % (11.5-14.5); Red Blood Cell (RBC) Count 2.62 mill/uL (4.20-5.40); White Blood Cell (WBC) Count 16.2 10x3/uL (4.8-10.8)
[2023-11-02 04:04] LABS: ALT (SGPT) 13 U/L (8-55); AST (SGOT) 15 U/L (5-34); Albumin 2.9 g/dL (3.4-4.8); Alkaline Phosphatase 47 U/L (40-110); Anion Gap 8 mmol/L (10-20); BUN (Urea Nitrogen) 25 mg/dL (9.8-20.1); Bilirubin, Total 0.6 mg/dL (0.2-1.2); Calc. Creatinine Clearance 75 mL/min (70-130); Carbon Dioxide 29 mmol/L (23-31); Chloride 111 mmol/L (98-107); Estimated GFR 76; Globulin 2.5 g/dL (2.4-3.5); Glucose 95 mg/dL (83-110); Potassium 4.9 mmol/L (3.5-5.1); Protein, Total 5.4 g/dL (5.8-8.1); Sodium 143 mmol/L (136-145)
[2023-11-02] MEDS: Levothyroxine Sodium 50 MCG TAB PO SCH (06:02)
[2023-11-02] MEDS: Budesonide 0.5 MG/2 ML NEB INH SCH ×2 (08:09→18:48)
[2023-11-02] MEDS: Ipratropium/Albuterol 3 ML NEB NEB SCH ×4 (08:09→18:45)
[2023-11-02] MEDS: Fluticasone Propionate Nasal Spray 16 gm Bottle NASAL SCH (09:26)
[2023-11-02] MEDS: Polyethylene Glycol 3350 17 GM Packet PO SCH (09:26)
[2023-11-02] MEDS: Lansoprazole 15 MG/5 ML (BATCHED)UDCUP PO SCH ×2 (09:26→20:29)
[2023-11-02] MEDS: Apixaban 5 MG TAB PO SCH ×2 (09:27→20:28)
[2023-11-02] MEDS: Ferrous Sulfate 325 MG TAB PO SCH (09:27)
[2023-11-02] MEDS: Cetirizine HCl 10 MG TAB PO SCH (09:27)
[2023-11-02] MEDS: Losartan 25 MG TAB PO SCH (09:27)
[2023-11-02] MEDS: Ascorbic Acid 500 mg Chewable Tablet PO SCH (09:27)
[2023-11-02] MEDS: Amlodipine 10 MG TAB PO SCH (09:27)
[2023-11-02] MEDS: Fish Oil 1,000 MG CAP PO SCH (09:27)
[2023-11-02] MEDS: Cholecalciferol 1,000 UNITS (25 MCG) TAB PO SCH (09:27)
[2023-11-02] MEDS: Dronedarone HCl 400 MG TAB PO SCH ×2 (09:27→18:03)
[2023-11-02] MEDS: Aspirin Chewable 81 MG TAB PO SCH (09:27)
[2023-11-02] MEDS: Sertraline 25 MG TAB PO SCH (09:28)
[2023-11-02] MEDS: Gabapentin 300 MG CAP PO SCH ×2 (09:28→20:28)
[2023-11-02] MEDS ORDERED: Furosemide 20 MG (2 mL) VIAL SLOW IVP SCH (12:15)
[2023-11-02] MEDS ORDERED: Furosemide 40 MG (4 mL) VIAL IVP SCH (17:45)
[2023-11-02] MEDS: Melatonin 3 MG TAB PO SCH (20:29)
[2023-11-03] MEDS: HYDROcodone/Acetaminophen 10/325 mg Tablet PO SCH ×3 (01:17→17:56)
[2023-11-03 03:50] LABS: #Eosinphils 0.2 thou/uL (0.0-0.7); #Monocytes 0.8 thou/uL (0.11-0.59); #Neutrophils 10.8 thou/uL (1.40-6.50); %Basophils 0.1 % (0.0-1.0); %Eosinophils 1.8 % (0.0-10.0); %Lymphocytes 9.1 % (21.0-51.0); %Neutrophils 82.2 % (42.0-75.0); Hematocrit 26.2 % (36.0-47.0); Hemoglobin 8.2 g/dL (12.0-16.0); Mean Corpuscular HGB CONC 31.3 g/dL (32.0-36.0); Mean Corpuscular Hemoglobin 30.5 pg (27.0-31.0); Mean Corpuscular Volume 97.4 fl (78.0-98.0); Mean Platelet Volume 8.4 fL (7.4-10.4); Platelet Count 223 10x3/uL (130-400); RBC Distribution Width 14.9 % (11.5-14.5); Red Blood Cell (RBC) Count 2.69 mill/uL (4.20-5.40); White Blood Cell (WBC) Count 13.1 10x3/uL (4.8-10.8)
[2023-11-03 04:13] LABS: ALT (SGPT) 11 U/L (8-55); AST (SGOT) 11 U/L (5-34); Alkaline Phosphatase 47 U/L (40-110); Anion Gap 10 mmol/L (10-20); BUN (Urea Nitrogen) 22 mg/dL (9.8-20.1); Bilirubin, Total 0.7 mg/dL (0.2-1.2); Calc. Creatinine Clearance 71 mL/min (70-130); Carbon Dioxide 30 mmol/L (23-31); Chloride 106 mmol/L (98-107); Estimated GFR 70; Globulin 2.5 g/dL (2.4-3.5); Glucose 90 mg/dL (83-110); Potassium 4.2 mmol/L (3.5-5.1); Protein, Total 5.5 g/dL (5.8-8.1); Sodium 142 mmol/L (136-145)
[2023-11-03] MEDS: Levothyroxine Sodium 50 MCG TAB PO SCH (06:20)
[2023-11-03] MEDS: Ipratropium/Albuterol 3 ML NEB NEB SCH ×4 (07:49→18:55)
[2023-11-03] MEDS: Budesonide 0.5 MG/2 ML NEB INH SCH ×2 (07:52→18:59)
[2023-11-03] MEDS ORDERED: Furosemide 40 MG (4 mL) VIAL SLOW IVP SCH (08:30)
[2023-11-03] MEDS: Fluticasone Propionate Nasal Spray 16 gm Bottle NASAL SCH (09:26)
[2023-11-03] MEDS: Polyethylene Glycol 3350 17 GM Packet PO SCH (09:26)
[2023-11-03] MEDS: Aspirin Chewable 81 MG TAB PO SCH (09:27)
[2023-11-03] MEDS: Sertraline 25 MG TAB PO SCH (09:27)
[2023-11-03] MEDS: Apixaban 5 MG TAB PO SCH (09:27)
[2023-11-03] MEDS: Cetirizine HCl 10 MG TAB PO SCH (09:27)
[2023-11-03] MEDS: Fish Oil 1,000 MG CAP PO SCH (09:27)
[2023-11-03] MEDS: Dronedarone HCl 400 MG TAB PO SCH ×2 (09:27→17:57)
[2023-11-03] MEDS: Ascorbic Acid 500 mg Chewable Tablet PO SCH (09:27)
[2023-11-03] MEDS: Losartan 25 MG TAB PO SCH (09:27)
[2023-11-03] MEDS: Cholecalciferol 1,000 UNITS (25 MCG) TAB PO SCH (09:28)
[2023-11-03] MEDS: Gabapentin 300 MG CAP PO SCH (09:28)
[2023-11-03] MEDS: Amlodipine 10 MG TAB PO SCH (09:28)
[2023-11-03] MEDS: Lansoprazole 15 MG/5 ML (BATCHED)UDCUP PO SCH (09:29)
[2023-11-03] MEDS ORDERED: Hydrochlorothiazide 25 MG TAB PO SCH (10:45)
[2023-11-03 16:13] VITALS: TEMP 98.8
[2023-11-04] MEDS ORDERED: Hydrochlorothiazide 25 MG TAB PO SCH (09:00)
== END 2023-11-03 18:57 | disposition hospice, inpatient (51) | DRG 193 ==
LOC: ERS 00:56 → ERHOLD 03:29 → CCU 06:32 → IMCU/EMU 10-31 22:13
PROVIDERS: ADMIT Student in an Organized Health Care Education/Training Program; ATTEND Student in an Organized Health Care Education/Training Program
PROC: 4A133R1 Monitoring of Arterial Saturation, Peripheral, Percutaneous Approach (ICD-10-PCS; 2023-10-23)
PROC: 5A09557 Assistance with Respiratory Ventilation, Greater than 96 Consecutive Hours, Continuous Positive Airway Pressure (ICD-10-PCS; 2023-10-23)
PROC: 30233N1 Transfusion of Nonautologous Red Blood Cells into Peripheral Vein, Percutaneous Approach (ICD-10-PCS; principal; 2023-10-25)
DX: J18.9 Pneumonia, unspecified organism (principal); I50.33 Acute on chronic diastolic (congestive) heart failure; J96.21 Acute and chronic respiratory failure with hypoxia; E87.1 Hypo-osmolality and hyponatremia; J44.1 Chronic obstructive pulmonary disease with (acute) exacerbation; I31.39 Other pericardial effusion (noninflammatory); N17.9 Acute kidney failure, unspecified; I48.92 Unspecified atrial flutter; I13.0 Hypertensive heart and chronic kidney disease with heart failure and stage 1 through stage 4 chronic kidney disease, or unspecified chronic kidney disease; E87.20 Acidosis, unspecified; Z51.5 Encounter for palliative care; Z66 Do not resuscitate; E03.9 Hypothyroidism, unspecified; G47.30 Sleep apnea, unspecified; F32.A Depression, unspecified; H91.90 Unspecified hearing loss, unspecified ear; I48.0 Paroxysmal atrial fibrillation; R32 Unspecified urinary incontinence; M17.0 Bilateral primary osteoarthritis of knee; K29.50 Unspecified chronic gastritis without bleeding; N18.30 Chronic kidney disease, stage 3 unspecified; E20.9 Hypoparathyroidism, unspecified; D63.1 Anemia in chronic kidney disease; E21.3 Hyperparathyroidism, unspecified; G47.00 Insomnia, unspecified; R53.81 Other malaise; E86.1 Hypovolemia; R13.10 Dysphagia, unspecified; D72.829 Elevated white blood cell count, unspecified; Z88.2 Allergy status to sulfonamides; Z88.0 Allergy status to penicillin; Z79.82 Long term (current) use of aspirin; Z79.899 Other long term (current) drug therapy; Z79.890 Hormone replacement therapy; Z90.710 Acquired absence of both cervix and uterus; Z98.890 Other specified postprocedural states; Z87.891 Personal history of nicotine dependence; Z90.722 Acquired absence of ovaries, bilateral; Z11.52 Encounter for screening for COVID-19
CPT/HCPCS: 36415; 36430; 71045; 71275; 76770; 80053; 81001; 82306; 82570; 82728; 82805; 83540; 83550; 83605; 83690; 83735; 83880; 83930; 83935; 83970; 84100; 84145; 84300; 84443; 84484; 84540; 85025; 85610; 85730; 86850; 86900; 86901; 87040; 93005; 93306; 94640; 94660; 96365; 96367; 96375; J0282; J0360; J0456; J0696; J1650; J1940; J1956; J2920; J2930; J3370-JW; J3475; J3490; J7030; J7050; J7070; J7120; J7512; J7620; J7626; P9016; Q4081; Q5105; Q9967